=== PATIENT | female | born 1995 | race Two or more races ===

== ENCOUNTER 2024-03-05 10:02 | Emergency (ER) | payer MEDICAID, SELFPAY ==
[2024-03-05 10:03] VITALS: BMI 32.2
[2024-03-05 10:10] VITALS: BP 115/76; PULSE 92; RESP 19; TEMP 37.1; O2SAT 98
--- NOTE | 2024-03-05 10:14 | XR_ITS ---
Examination: CT soft tissue neck, with intravenous contrast. 2-D coronal reconstructions. 2-D sagittal reconstructions. Date and time of exam :March 05, 2024 1434 hrs. Indications: Beginning 4 days ago. CTDI: vol (mGy):12.6 DLP: (mGycm):326 Technique: 1.25 mm axial sections of the neck of the obtained. Coronal and sagittal reconstructions have been obtained. Intravenous contrast administered 50 cc Isovue-370. Low dose protocols were performed. One or more of the following dose reduction techniques were used; automated exposure control, adjustment of the mA and/or KV according to patient size, use of iterative reconstruction technique. Findings: Enhancing oropharyngeal areas, axial images 20 through 30, coronal image 30 both right and left tonsillar regions measuring up to 2 cm in AP dimension This supraglottic region is unremarkable No laryngeal mass Thyroid lobes exhibit symmetry Normal epiglottis Bilateral carotid triangle lymph nodes, the largest on the right side 15 mm, on the left side 15 mm Impression: Bilateral tonsillar enhancement as above, given the patient's age, differential would favor tonsillitis, early tonsillar neoplasm not excluded, however Bilateral carotid triangle lymphadenopathy Recommend follow-up CT soft tissue neck imaging post antibiotic therapy
--- NOTE | 2024-03-05 10:14 | PD.EDRME ---
Rapid Medical Screening Exam RME Arrival date/time: 03/05/24 10:02 28-year-old female presents emerged part with complaints of swelling to submandibular area ongoing x 4 days Chief Complaint: General Adult/Misc Complain Time Seen by Provider: 03/05/24 10:11 Vital signs: Vital Signs Temperature 98.8 F 03/05/24 10:10 Pulse Rate 92 03/05/24 10:10 Respiratory Rate 19 03/05/24 10:10 Blood Pressure 115/76 03/05/24 10:10 Pulse Oximetry (%) 98 03/05/24 10:10 Oxygen Delivery Method Room Air 03/05/24 10:10
[2024-03-05 10:49] LABS: Basophils % (Auto) 0 % (0-2.5); Eosinophils % (Auto) 0 % (0-10); Hematocrit 39.9 % (36.0-46.0); Hemoglobin 13.5 g/dL (12.0-16.0); Immature Granulocytes % (Auto) 0 % (0-0); Immature Granulocytes Auto 0.02 Thou/mm3 (0.00-0.00); Lymphocytes # (Auto) 1.6 Thou/mm3 (1.0-4.8); Lymphocytes % (Auto) 21 % (10-50); Mean Corpuscular HGB Conc 33.8 g/dl (31.0-37.0); Mean Corpuscular Hemoglobin 28.3 pg (25.0-35.0); Mean Corpuscular Volume 84 fL (80-100); Monocytes # (Auto) 1.2 Thou/mm3 (0.0-0.8); Monocytes % (Auto) 16 % (0-12); Neutrophils # (Auto) 4.9 Thou/mm3 (1.8-7.7); Neutrophils % (Auto) 63 % (37-80); Nucleated Red Blood Cell % 0 /100 WBC (0); Platelet Count 292 Thou/mm3 (140-440); RDW Standard Deviation 38.6 fL (36.4-46.3); Red Blood Count 4.77 Miln/mm3 (4.00-5.20); White Blood Count 7.7 Thou/mm3 (3.6-11.0)
[2024-03-05 11:15] LABS: Alanine Aminotransferase 16 U/L (10-49); Albumin, Serum 5.1 gm/dL (3.5-5.0); Albumin/Globulin Ratio 1.7 (1.2-2.2); Alkaline Phosphatase 104 U/L (46-116); Anion Gap 7 (7-16); Aspartate Amino Transferase 18 U/L (0-34); BUN/Creatinine Ratio 11 Ratio (12-20); Bilirubin,Total 0.6 mg/dL (0.3-1.2); Blood Urea Nitrogen 10 mg/dL (9-23); Calcium 9.5 mg/dL (8.3-10.6); Calcium (Corrected) 9.5 mg/dL (8.5-10.1); Carbon Dioxide 27.8 mMol/L (20.0-31.0); Chloride 103 mMol/L (98-107); Creatinine (Component) 0.9 mg/dL (0.6-1.3); Estimated Creatinine Clearance 83.3 mL/min (>60); Glucose 82 mg/dL (74-106); Osmolality,Calculated 273 (275-295); Potassium 4.2 mMol/L (3.4-5.1); Sodium 138 mMol/L (136-145); Total Protein 8.1 gm/dL (5.7-8.2); eGFR > 60 See Note
[2024-03-05 11:33] LABS: HCG,Qualitative Serum Negative
[2024-03-05] MEDS: AMOXICILLIN/POT CLAV 875 TABLET 1 TAB PO (16:06)
--- NOTE | 2024-03-05 16:25 | PD.EDDENTL ---
ED Dental RME/HPI General Chief complaint: General Adult/Misc Complain Stated complaint: LUMP LEFT CHIN x 4 DAYS Time Seen by Provider: 03/05/24 10:11 Arrival date/time: 03/05/24 10:02 RME / HPI RME / HPI Narrative: 03/05/24 10:02 28-year-old female presents emerged part with complaints of swelling to submandibular area ongoing x [address] VEGA MAIN ED EVALUATION: 28 year old female with no past medical history presents to the Emergency Department with complaint of lump to left side chin/ neck onset 4 days. Symptoms are mild. Related Data Previous Rx's ?Medication ?Instructions ?Recorded amoxicillin 875 mg tablet 875 mg PO BID #20 tabs 03/05/24 Allergies Allergy/AdvReac Type Severity Reaction Status Date / Time No Known Allergies Allergy Verified 03/05/24 10:05 Review of Systems Review of Systems Systems Reviewed: All systems reviewed, normal except as documented Narrative Review of Systems: GEN: No fever, no chills, no weight loss EYES: No discharge, no visual changes, no pain HEENT: No ear pain, no congestion, no sore throat; + lump to left side chin/ neck PULM: No shortness of breath, no cough, no congestion CV: No chest pain, no dyspnea on exertion, no palpitations GI: No nausea, no vomiting, no diarrhea, no pain, no constipation : No frequency, no urgency and no dysuria MUSC/SKEL: No joint pain, no back pain SKIN: No rash PSYCH: No hallucinations, no depression HEME/LYMPH: No easy bleeding or bruising tendencies NEURO: No weakness, no headache Past Medical History Social History SMOKING STATUS: Never smoker SUBSTANCE USE: does not use ALCOHOL: Never ED Exam Narrative Physical exam: GENERAL APPEARANCE: alert and oriented x 4, well-developed, well-nourished, no acute distress VITALS: All vitals were reviewed and the pulse ox is 98% on room air, which is normal according to my interpretation. HEENT: Normocephalic, atraumatic; pupils equal, round, reactive to light; EOMI; mucous membranes pink, moist; oropharynx clear NECK: Supple LUNGS: CTABL; no wheezes, no rales, no rhonchi HEART: Regular rate, regular rhythm; normal S1, S2; no murmurs ABDOMEN: non distended; normal BS; soft, no tenderness, no guarding, no rebound; no masses, no organomegaly, no hernia BACK: no CVA tenderness EXTREMITIES: atraumatic; no edema NEUROLOGIC: awake; alert and oriented x4; cranial nerves II-XII grossly intact; no focal sensory or motor deficits PSYCHIATRIC: appropriate mood and affect SKIN: warm, dry, normal color; no rashes Course Quality Measures none Orders Category Date Time Status Bedside COVID-19 Antigen Test NOW Care 03/05/24 15:44 Completed Bedside Influenza A&B Antigen Test NOW Care 03/05/24 15:[address] Screening NOW Care 03/05/24 10:14 Completed Insert IV NOW Care 03/05/24 13:[address] soft tissue neck w con Stat Exams 03/05/24 10:14 Completed CBC Stat Lab 03/05/24 10:33 Completed CMP [Comprehensive Metabolic Panel] Stat Lab 03/05/24 10:33 Completed HCG,Qualitative Serum Stat Lab 03/05/24 10:33 Completed Strep A Rapid Stat Lab 03/05/24 16:10 Completed Amoxicillin/Pot Clav 875 [Augmentin 875] Med 03/05/24 15:37 Discontinued 1 tab PO X1 ONE Vital Signs Vital signs: Vital Signs Temperature 98.8 F 03/05/24 10:10 Pulse Rate 92 03/05/24 10:10 Respiratory Rate 19 03/05/24 10:10 Blood Pressure 115/76 03/05/24 10:10 Pulse Oximetry (%) 98 03/05/24 10:10 Oxygen Delivery Method Room Air 03/05/24 10:10 Dental / Oral MDM Narrative MDM Narrative:: IAubree am scribing for and in the presence of Dr. Vega. Patient data External records reviewed:: [facility] previous records (Reviewed last ED visit dated 01/27/22, discharged with the following: chest pain.) Clinical information provided by:: patient Social determinants that could affect healthcare access:: none Patient has the following chronic illnesses:: Denies any PMHx, surgeries, daily medications, or known allergies. How is presenting disease/condition affected by chronic disease/condition?: no chronic disease Evaluation data The following diagnostics were reviewed and interpreted by me:: lab results and radiology exam(s) Lab and/or radiology exams considered but not ordered:: none Interpretation Summary: Procedure(s): CT soft tissue neck w con Accession Number(s): [id number] cc: Andrew (GAMALIEL),Sai ALSTON; Louis Dias MD; NO PRIMARY/FAMILY,PHYSICIAN~ Examination: CT soft tissue neck, with intravenous contrast. 2-D coronal reconstructions. 2-D sagittal reconstructions. Date and time of exam :March 05, 2024 1434 hrs. Indications: Beginning 4 days ago. CTDI: vol (mGy):12.6 DLP: (mGycm):326 Technique: 1.25 mm axial sections of the neck of the obtained. Coronal and sagittal reconstructions have been obtained. Intravenous contrast administered 50 cc Isovue-370. Low dose protocols were performed. One or more of the following dose reduction techniques were used; automated exposure control, adjustment of the mA and/or KV according to patient size, use of iterative reconstruction technique. Findings: Enhancing oropharyngeal areas, axial images 20 through 30, coronal image 30 both right and left tonsillar regions measuring up to 2 cm in AP dimension This supraglottic region is unremarkable No laryngeal mass Thyroid lobes exhibit symmetry Normal epiglottis Bilateral carotid triangle lymph nodes, the largest on the right side 15 mm, on the left side 15 mm Impression: Bilateral tonsillar enhancement as above, given the patient's age, differential would favor tonsillitis, early tonsillar neoplasm not excluded, however Bilateral carotid triangle lymphadenopathy Recommend follow-up CT soft tissue neck imaging post antibiotic therapy Dictated By: Louis Dias MD Medications / Prescriptions Medications or Prescriptions considered but not ordered:: none Medication administrations:: Medication Administration History Discontinued Medications Amoxicillin/Clavulanate Potassium (Amoxicillin/Pot Clav 875 Tablet) 1 tab PO X1 ONE Stop: 03/05/24 15:38 Last Admin: 03/05/24 16:06 Dose: 1 tab Documented By: see above Consultations Consultation(s) initiated? (list below): No Diagnosis Dental Differential Diagnosis: dental abscess and other (Acute tonsillitis, Lymphadenopathy) Most likely diagnosis given after review of the tests above:: Acute tonsillitis Lymphadenopathy Admission Indicated Admission indicated?: not indicated Admission Request Was there a request for admission?: No Disposition Plan Disposition Plan: Discharge Discharge Attestation Discharge Attestation: The patient and all family members were given an opportunity to ask questions and understood the discharge instructions. Discharge instructions specifically effects, indications for sooner follow up or return to the emergency department, and the expected course of current diagnosis. Patient condition: Stable Discharge Plan Plan Patient Disposition: HOME (Self Care) Prescriptions/Referrals Prescriptions/Med Rec: New amoxicillin 875 mg tablet 875 mg PO BID Qty: 20 0RF Referrals: No Primary/Family,Physician [Primary Care Provider] - In 1 week Problem List Clinical Impression: Acute tonsillitis, Lymphadenopathy Patient/Caregiver Discharge Instructions Education Materials: Tonsillitis in Adults, Lymphadenopathy Print Language: [place] Stand Alone Forms: Mimi Award Info., Patient Portal Info Letter
[2024-03-05 16:54] LABS: Strep A Rapid Positive (Negative)
== END 2024-03-05 16:50 | disposition home or self-care (01) ==
PROVIDERS: Nurse Practitioner Primary Care; Emergency Provider Emergency Medicine
DX: J03.90 Acute tonsillitis, unspecified (principal)
CPT/HCPCS: 36415; 70491; 80053; 84703; 85025; 87400; 87651; 87811; 99285; A4649; Q9967; A9270

== ENCOUNTER 2024-07-25 20:41 | Emergency (ER) | payer MEDICAID, SELFPAY ==
[2024-07-25 20:42] VITALS: BMI 29.0
[2024-07-25 20:53] VITALS: BP 113/77; PULSE 87; RESP 16; TEMP 36.8; O2SAT 98
--- NOTE | 2024-07-25 21:01 | XR_ITS ---
Examination: OB Transvaginal ultrasound of the pelvis, complete Technique: Transvaginal sonographic images pelvis performed using wright scale imaging Exam date and time: July 25, 2024 2115 hours INDICATIONS: Pelvic cramping beginning 2 days ago FINDINGS: Uterus 10.3 cm, no intrauterine gestation or definite uterine masses Small areas of calcification Endometrial stripe 1.4 cm Right ovary obscured by bowel gas Left ovary 3.9 cm with arterial flow, 29 x 28 cm cyst IMPRESSION: Negative for intrauterine gestation
--- NOTE | 2024-07-25 21:13 | EDNOTE_ITS ---
ED Female Urogenital RME/HPI General Chief complaint: Abdominal Pain Stated complaint: POS PREGNANCT TEST, WANTS TO BE CHECKED Time Seen by Provider: 07/25/24 21:01 Arrival date/time: 07/25/24 20:41 28F at unknown gestational age presents to ED with 2 days of pelvic pain. Patient denies dysuria and vaginal bleeding. Patient took a test at home at it was positive. Limitations: no limitations Related Data Previous Rx's ?Medication ?Instructions ?Recorded amoxicillin 875 mg tablet 875 mg PO BID #20 tabs 03/05 Allergies Allergy/AdvReac Type Severity Reaction Status Date / Time No Known Allergies Allergy Verified 03/05/24 10:05 Review of Systems Review of Systems Systems Reviewed: All systems reviewed, normal except as documented Constitutional Constitutional: Reports system reviewed and no additional complaints, except as documented, Denies fever(s) and Denies headache(s) ENT Ears, Nose, Mouth, and Throat: Denies disequilibrium and Denies headache(s) Cardiovascular Cardiovascular: Reports system reviewed and no additional complaints, except as documented, Denies chest pain and Denies dyspnea Respiratory Respiratory: Reports system reviewed and no additional complaints, except as documented, Denies cough and Denies dyspnea Gastrointestinal Gastrointestinal: Reports system reviewed and no additional complaints, except as documented, Denies abdominal pain, Denies nausea and Denies vomiting Genitourinary Genitourinary: Reports as per HPI and Reports pelvic pain Neurologic Neurologic: Reports system reviewed and no additional complaints, except as documented, Denies confusion, Denies disequilibrium and Denies headache(s) Psychiatric Psychiatric: Denies confusion Past Medical History Past Medical History NEUROLOGIC: Negative Neurological Disorders CARDIAC: Negative Cardiac Disorders or Congestive Heart Failure RESPIRATORY: Negative Chronic Obstructive Pulmonary Disease (COPD) or Asthma GASTROINTESTINAL: Negative Gastrointestinal Disorders, Hepatitis or Colorectal Cancer GENITOURINARY: Negative Genitourinary Disorders, Renal Disease or Prostate Cancer REPRODUCTIVE: Positive Previous Pregnancies; Negative Breast Cancer, Pelvic Inflammatory Disease or Testicular Cancer MUSCULOSKELETAL: Negative Musculoskeletal Disorders or Bone Cancer ENDOCRINE: Negative Endocrine Disorders, Diabetes Mellitus Type 1 or Diabetes Mellitus Type 2 HEMATOLOGIC: Negative Blood Disorders, Anemia, Leukemia or Sickle Cell Disease OTHER HISTORY: Positive Hospitalization (CHILDBIRTH); Negative Autoimmune Disease, Down Syndrome, Developmental Delay, Falls, Blood Transfusions, Blood Transfusion Reaction, Anesthesia Reactions, Organ Langford splant, Chemotherapy, Radiation Therapy, Hyperbaric Therapy, MRSA, VRSA, Vancomycin-Resistant Enterococci, Human Immunodeficiency Virus (HIV), Chicken Pox, Measles, Mumps, Rubella ([place] Measles), Pertussis, Clostridium Difficile, Cancer, Breast Cancer, Cervical Cancer, Colorectal Cancer, Lung Cancer, Ovarian Cancer, Prostate Cancer or Testicular Cancer Family History FAMILY HISTORY: Negative Family Neurologic Problems, Family Psychiatric Problems, Family Respiratory Disorders, Family Cardiac Disorders, Family Gastrointestinal Problems, Family Cancer, Family Surgery or Family Anesthesia Reaction Surgical History SURGICAL: Negative Section or Organ Transplant Social History SMOKING STATUS: Never smoker SUBSTANCE USE: does not use ED Exam General Limitations: Present no limitations General appearance: Present alert and in no apparent distress Head Head exam: Present atraumatic Eye Eye exam: Present normal appearance, PERRL and EOMI ENT ENT exam: Present normal exam, normal oropharynx and mucous membranes moist Neck Neck exam: Present normal inspection, full ROM and trachea midline Chest Chest inspection: Present normal inspection and symmetric chest wall rise Respiratory Respiratory exam: Present normal lung sounds bilaterally Cardiovascular Cardiovascular exam: Present regular rate, normal rhythm and normal heart sounds Abdominal Exam Abdominal exam: Present soft and normal bowel sounds Extremities Exam Extremities exam: Present normal inspection and full ROM Back Exam Back exam: Present normal inspection and full ROM Neurological Exam Neurological exam: Present alert, oriented X3 and CN II-XII intact Psychiatric Psychiatric exam: Present normal affect and normal mood Skin Skin exam: Present warm, dry, intact and normal color Course Quality Measures none Orders Category Date Time Status US OB transvaginal Stat Exams 07/25/24 21:01 Completed Beta HCG,Quantitative Stat Lab 07/25/24 21:46 Completed CBC Stat Lab 07/25/24 21:46 Completed CMP [Comprehensive Metabolic Panel] Stat Lab 07/25/24 21:46 Completed UA [Urinalysis] Stat Lab 07/25/24 22:30 Completed Urine Culture Stat Lab 07/25/24 22:30 Received Vital Signs Vital signs: Vital Signs Temperature 98.3 F 07/25/24 20:53 Pulse Rate 87 07/25/24 20:53 Respiratory Rate 16 07/25/24 20:53 Blood Pressure 113/77 07/25/24 20:53 Pulse Oximetry (%) 98 07/25/24 20:53 Oxygen Delivery Method Room Air 07/25/24 20:53 O2 at 98% on RA and WNLs Urogenital - Female MDM Narrative MDM Narrative:: 28F at unknown gestational age presents to ED with 2 days of pelvic pain. Patient denies dysuria and vaginal bleeding. Patient took a test at home at it was positive. Physical exam reveals well-appearing female. Patient is afebrile, calm, and alert. US unremarkable. Beta HCG 84, which confirms early . CBC and CMP unr emarkable. UA clean. Patient data External records reviewed:: [facility] previous records Clinical information provided by:: patient Social determinants that could affect healthcare access:: none Patient has the following chronic illnesses:: none How is presenting disease/condition affected by chronic disease/condition?: no chronic disease Evaluation data The following diagnostics were reviewed and interpreted by me:: lab results and radiology exam(s) Lab and/or radiology exams considered but not ordered:: ordered Interpretation Summary: above Medications / Prescriptions Medications or Prescriptions considered but not ordered:: not ordered Medication administrations:: n/a Consultations Consultation(s) initiated? (list below): No Diagnosis Urogenital Female Differential Diagnosis: urinary tract infection, bacterial vaginosis, trichomoniasis, cervicitis, ovarian cyst, vaginitis, ruptured ovarian cyst, cyst of Bartholin's gland, cystitis, dysmenorrhea and other (currently ) Most likely diagnosis given after review of the tests above:: currently Admission Indicated Admission indicated?: not indicated Admission Request Was there a request for admission?: No Disposition Plan Disposition Plan: Discharge Discharge Attestation Discharge Attestation: The patient and all family members were given an opportunity to ask questions and understood the discharge instructions. Discharge instructions specifically effects, indications for sooner follow up or return to the emergency department, and the expected course of current diagnosis. Patient condition: Stable Discharge Plan Plan Patient Disposition: HOME (Self Care) Discharge Disposition comment: Stable Prescriptions/Referrals Prescriptions/Med Rec: No Action amoxicillin 875 mg tablet 875 mg PO BID Qty: 20 0RF Referrals: No Primary/Family,Physician [Primary Care Provider] - In 1 week Problem List Clinical Impression: Currently Patient/Caregiver Discharge Instructions Education Materials: ED , New Dx Additional Instructions: Please follow-up with PCP/OBGYN within 24-48 hours and return immediately if symptoms worsen. Print Language: Mongolian Stand Alone Forms: Patient Portal Info Letter TIFFANIE/CARLA Supervising Physician TIFFANIE/CARLA Supervising Physician: Dr. Staley
[2024-07-25 21:53] LABS: Basophils # (Auto) 0.1 Thou/mm3 (0.0-0.2); Basophils % (Auto) 0 % (0-2.5); Eosinophils # (Auto) 0.2 Thou/mm3 (0.0-0.5); Eosinophils % (Auto) 2 % (0-10); Hematocrit 36.5 % (36.0-46.0); Hemoglobin 12.7 g/dL (12.0-16.0); Immature Granulocytes % (Auto) 0 % (0-0); Immature Granulocytes Auto 0.03 Thou/mm3 (0.00-0.00); Lymphocytes # (Auto) 3.9 Thou/mm3 (1.0-4.8); Lymphocytes % (Auto) 34 % (10-50); Mean Corpuscular HGB Conc 34.8 g/dl (31.0-37.0); Mean Corpuscular Hemoglobin 28.4 pg (25.0-35.0); Mean Corpuscular Volume 82 fL (80-100); Monocytes # (Auto) 1.2 Thou/mm3 (0.0-0.8); Monocytes % (Auto) 10 % (0-12); Neutrophils % (Auto) 53 % (37-80); Nucleated Red Blood Cell % 0 /100 WBC (0); Platelet Count 319 Thou/mm3 (140-440); RDW Standard Deviation 37.2 fL (36.4-46.3); Red Blood Count 4.47 Miln/mm3 (4.00-5.20); White Blood Count 11.3 Thou/mm3 (3.6-11.0)
[2024-07-25 22:17] LABS: Alanine Aminotransferase 13 U/L (10-49); Albumin, Serum 4.5 gm/dL (3.5-5.0); Albumin/Globulin Ratio 1.6 (1.2-2.2); Alkaline Phosphatase 98 U/L (46-116); Anion Gap 9 (7-16); Aspartate Amino Transferase 16 U/L (0-34); BUN/Creatinine Ratio 16 Ratio (12-20); Beta HCG,Quantitative 85 mIU/mL (<5.0); Bilirubin,Total 0.4 mg/dL (0.3-1.2); Blood Urea Nitrogen 16 mg/dL (9-23); Calcium 8.9 mg/dL (8.3-10.6); Calcium (Corrected) 8.9 mg/dL (8.5-10.1); Carbon Dioxide 26.9 mMol/L (20.0-31.0); Chloride 104 mMol/L (98-107); Estimated Creatinine Clearance 71.2 mL/min (>60); Globulin 2.9 gm/dL (2.3-3.5); Glucose 81 mg/dL (74-106); Osmolality,Calculated 279 (275-295); Potassium 4.3 mMol/L (3.4-5.1); Sodium 140 mMol/L (136-145); Total Protein 7.4 gm/dL (5.7-8.2); eGFR > 60 See Note
[2024-07-25 23:50] LABS: Collection Type, Urine Clean Catch
[2024-07-26 00:21] LABS: Bilirubin,Urine Negative (Negative); Blood,Urine Negative (Negative); Clarity,Urine Clear (Clear/Hazy); Color,Urine Yellow (Lt Yel-Yel); Glucose, Urine Negative (Negative); Ketones,Urine Negative (Negative); Leukocyte Esterase,Urine Negative (Negative); Nitrite,Urine Negative (Negative); PH,Urine 6.5 (5.0-7.0); Protein,Urine Trace (Neg - Trace); RBC,Urine 1 /hpf (0-3); Specific Gravity,Urine 1.034 (1.001-1.035); Squamous Epithelial Cell,Urine 3 /hpf (0-5); WBC,Urine 1 /hpf (0-5)
== END 2024-07-26 02:52 | disposition home or self-care (01) ==
PROVIDERS: Physician Assistant; Emergency Provider Emergency Medicine
DX: O26.899 Other specified pregnancy related conditions, unspecified trimester (principal); R10.2 Pelvic and perineal pain; Z3A.00 Weeks of gestation of pregnancy not specified
CPT/HCPCS: 36415; 76817; 80053; 81001; 84702; 85025; 87086; 99284

== ENCOUNTER 2024-08-07 09:26 | Outpatient (AMB) | payer BC, SELFPAY ==
--- NOTE | 2024-08-07 09:40 | AMB.OBINITIA ---
Vital Signs 08/07/24 09:53 Height 1.55 m Height Method Stated Weight 83.234 kg Weight Measurement Method Standing Scale BMI 34.7 BP 100/64 Blood Pressure Source Automatic Cuff Blood Pressure Location Right Upper Arm Position Sitting Respiration 17 Pulse 76 Pulse Source Monitor Temp 97.8 F Temp Source Temporal Artery Scan Pulse Oximetry (%) 98 Oxygen Delivery Method Room Air Allergies/Home Meds Allergies & Medications Allergies No Known Allergies Allergy (Verified 08/07/24 09:54) Medication Reconciliation vitamin-ferrous fumarate 28 mg iron-folic acid 800 mcg tablet ( Vitamins with Minerals) 1 tab PO QDAY #60 tabs 08/07/24 [Rx] Intake Visit Data Collection New Patient or Established: Established Patient (seen at [facility] within 3 years) Reason for Visit:: OBI Seen by Clinical Staff ONLY (RN/MA): No Labor And Delivery Registered Nurse Required: No Do You Feel Safe at Home: Yes Authorities Contacted: N/A PCP or OBGYN visit in last 3 months: Yes Date of Last PCP or OBGYN visit: 07/25/24 Hx Now: Yes Are you currently on any form of Control: No Pain Present Currently: No Pain Scale Used: Pichardo-Bryant/Numerical Pain scale:: 0 Smoking Status Smoking Status: Never smoker Questionnaires Covid-19 Vaccine Questionnaire Has patient been vacinated for Covid-19 Have you been vacinated for Covid-19: Yes PHQ-9 PHQ-2 Over the last 2 weeks, how often have you been bothered by any of the following problems? 1. Little interest or pleasure in doing things: not at all 2. Feeling down, depressed, or hopeless: not at all Total score: 0 PHQ-9 3. Trouble falling or staying asleep, or sleeping too much: Not at all 4. Feeling tired or having little energy: Not at all 5. Poor appetite or overeating: Not at all 6. Feeling bad about yourself - or that you are a failure or have let yourself or your family down: Not at all 7. Trouble concentrating on things, such as reading the newspaper or watching television: Not at all 8. Moving or speaking so slowly that other people could have noticed? - Or the opposite - being so fidgety or restless that you have been moving around a lot more than usual: not at all 9. Thoughts that you would be better off or of hurting yourself in some way: Not at all Total score: 0 If you checked off any problems, how difficult have these problems made it for you to do your work, take care of things at home, or get along with other people?: not difficult at all Source: Developed by Drs. Marcos Miramontes, Jessie Hinojosa, Grant García and colleagues, with an educational shante from [employer]. Depression screen completed yes Social History Living Situation History Marital Status: Lives With: Family Housing: House Tobacco History Smoking Status: Never smoker Alcohol History Alcohol Intake: Never Domestic Abuse History Do You Feel Safe at Home: Yes History of Present Illness HPI Narrative 28 yo for OBI. patient had GISSELL visit because early concerns. lmp 06/22/24. + preg test 07/27/24. EDC 03/30/25. denies vag bleeding. increase nausea. no cramping. 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 happy with pregnanccy. gissell sono: no evidence of IUP, uterus 10wk size, stripe: 1.4. HC. lmp 06/22/24. edc 03/30/25 schedule OB [facility] today, ob panel, discuss sab precaution and er precaution, rtc 4 week schedule OB sono at [facility], [facility] [place] today, ob panel, discuss sab precaution and er precaution, rtc 4 week . preg verif and rx for PNV Menstrual History Menstrual reliability: definite Flow: heavy Menstrual regularity: regular Monthly: Yes Age at menarche: 9 On control pills at conception: No Date of positive home test: 05/25/24 Associated symptoms (LMP): Reports nausea, vomiting, breast tenderness and urinary frequency OB History : 3 Para: 3 Hx # Pregnancies: 3 Hx Total # of Abortions (Spontaneous & Elective): 0 # of Living Children: 3 Delivery History 1st : Child's name: CORTNEY WHITESIDE date: 09/25/12 sex: female Gestational age at delivery (weeks): 35 Delivery type: vaginal weight (lbs): 2267.962 g weight (oz): 311.845 g History of depression before or after : No 2nd : Child's name: BYRON WHITESIDE date: 05/02/15 sex: male Gestational age at delivery (weeks): 34 Delivery type: vaginal weight (lbs): 2267.962 g weight (oz): 255.146 g History of depression before or after : No 3rd : Child's name: PURVI WHITESIDE date: 06/14/19 sex: male Gestational age at delivery (weeks): 32 Delivery type: vaginal weight (lbs): 2267.962 g weight (oz): 141.748 g History of depression before or after : No Infection History & Risk Evaluation History of STDs: none HIV risk evaluation: low risk Hepatitis B risk evaluation: low risk Patient or partner has history of Genital Herpes: No Varicella/chicken pox status: immunized Genetic Screening & History Genetic Screening/Teratology Counseling - Includes patient, baby's father, or anyone in either family with: 1. Patient's age 35 years or older as of estimated date of delivery: No 2. Thalassemia (Qatari, Burmese, Mediterranean, or Background); MCV less than 80: No 3. Neural Tube Defect (Meningomyelocele, Spina Bifida, or Anencephaly): No 4. Congenital Heart Defect: No 5. Down Syndrome: No 6. John-Sachs (Ashkenazi Sikhism, Cajun, Serbian Walker): No 7. Shiv Disease (Ashkenazi Sikhism): No 8. Familial Dysautonomia (Ashkenazi Sikhism): No 9. Sickle Cell Disease or Trait (): No 10. Hemophilia or other blood disorders: No 11. Muscular Dystrophy: No 12. Cystic Fibrosis: No 13. [place]'s Chorea: No 14. Mental Retardation/Autism: Yes 15. Other inherited genetic or chromosomal disorder: No 16. Maternal Metabolic Disorder (EG,TYPE 1 Diabetes, PKU): No 17. Patient or baby's father had a child with defects not listed above: No 18. Recurrent loss or a stillbirth: No 19. Medications (including supplements, vitamins, herbs or otc drugs)/illicit/recreational drugs/alcohol since last menstrual period: Yes 20. Any other: No Infection History 1. Live with someone with TB or exposed to TB: No 2. Rash or viral illness since last menstrual period: No 3. Hepatitis B,C: No Other (see comments) Source: [employer] Review of Systems Review of Systems Systems Reviewed: All systems reviewed, normal except as documented Gastrointestinal Gastrointestinal: Reports nausea and Reports vomiting Genitourinary Genitourinary: Reports urinary frequency Exam General Limitations: no limitations General Appearance: alert, in no apparent distress, comfortable, cooperative, healthy appearing, well developed and well groomed Head Head exam: atraumatic, normocephalic and normal inspection Chest Chest inspection: Present normal inspection and symmetric chest wall rise Resp Respiratory exam: Present normal lung sounds bilaterally Card Cardiovascular exam: Present regular rate, normal rhythm and normal heart sounds Abdominal Abdominal exam: Present soft and normal bowel sounds Psych Psychiatric exam: Present normal affect and normal mood Results Objective Laboratory: HC, A+, UC clear Imaging: endo vag sono: uterus 10wk size, endometrial stripe: 1.4 Office Procedures OB Clinic LOC & Office Proc's Nursing/Assessment Patient Status: Established Patient OB Clinic Nursing Assessment: Medication Reconciliation, Update PMH in EMR and Vital Signs OB Clinic Coordination of Care: Complex Care and Chronic Disease 1-5, Consent,records obtained, informed consent, Education Simp Pt/Fam, Lab and Imaging orders and Staff clarify orders Special Needs: Heart tones Established Patient Charge Established Patient Point Assignment: 130 Established Patient Point Charge: EP Level 4 (120-155) Assessment & Plan Diagnosis / Problem List (1) Encounter for supervision of normal in multigravida in first trimester: Status: Acute Plan Schedule ultrasound with [facility]. Discussed SAB precautions. Discussed danger signs symptoms. I gave her prescription for vitamins. verification done. OB panel and hCG today. Return in 3 weeks for results Additional Plan Follow Up: 4 Weeks (obc)
[2024-08-07 09:53] VITALS: BP 100/64; PULSE 76; RESP 17; TEMP 36.6; O2SAT 98; BMI 34.7
== END 2024-08-07 10:29 | disposition home or self-care (01) ==
LOC: HODSOBC 09:26
PROVIDERS: Supervising Provider Obstetrics & Gynecology; Visit Provider Advanced Practice Midwife
DX: Z34.81 Encounter for supervision of other normal pregnancy, first trimester (principal); Z3A.01 Less than 8 weeks gestation of pregnancy
CPT/HCPCS: 99214; G0463

== ENCOUNTER 2024-09-10 09:58 | Outpatient (AMB) | payer MEDICAID, SELFPAY ==
[2024-09-10 10:15] VITALS: BP 107/69; PULSE 88; RESP 17; TEMP 36.8; O2SAT 98; BMI 34.9
--- NOTE | 2024-09-10 10:15 | OBCLNT_ITS ---
Vital Signs 09/10/24 10:15 Height 1.55 m Height Method Measured Weight 83.971 kg Weight Measurement Method Standing Scale BMI 34.9 BP 107/69 Blood Pressure Source Automatic Cuff Blood Pressure Location Right Upper Arm Position Sitting Respiration 17 Pulse 88 Pulse Source Monitor Temp 98.2 F Temp Source Temporal Artery Scan Pulse Oximetry (%) 98 Oxygen Delivery Method Room Air Allergies/Home Meds Allergies & Medications Allergies No Known Allergies Allergy (Verified 09/10/24 10:16) Medication Reconciliation vitamin-ferrous fumarate 28 mg iron-folic acid 800 mcg tablet ( Vitamins with Minerals) 1 tab PO QDAY #60 tabs 08/07/24 [Rx Confirmed 09/10/24] Intake Visit Data Collection New Patient or Established: Established Patient (seen at [facility] within 3 years) Reason for Visit:: OBC Consent obtained for Telemed Visit: No Seen by Clinical Staff ONLY (RN/MA): No Food Services Manager Required: No Do You Feel Safe at Home: Yes Authorities Contacted: N/A PCP or OBGYN visit in last 3 months: Yes Date of Last PCP or OBGYN visit: 09/10/24 Hx Now: Yes Are you currently on any form of Control: No Pain Present Currently: No Pain Scale Used: Pichardo-Bryant/Numerical Pain scale:: 0 Smoking Status Smoking Status: Never smoker Questionnaires Covid-19 Vaccine Questionnaire Has patient been vacinated for Covid-19 Have you been vacinated for Covid-19: Yes PHQ-9 PHQ-2 Over the last 2 weeks, how often have you been bothered by any of the following problems? 1. Little interest or pleasure in doing things: not at all PHQ-9 8. Moving or speaking so slowly that other people could have noticed? - Or the opposite - being so fidgety or restless that you have been moving around a lot more than usual: not at all Source: Developed by Drs. Marcos Miramontes, Jessie Hinojosa, Grant García and colleagues, with an educational shante from [employer]. 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 happy with pregnanccy. gissell sono: no evidence of IUP, uterus 10wk size, stripe: 1.4. HC. lmp 06/22/24. edc 03/30/25 schedule [facility] [place] [facility] [place] [facility] [place], ob panel, discuss sab precaution and er precaution, rtc 4 week schedule OB sono at [facility], HCG today, ob panel, discuss sab precaution and er precaution, rtc 4 week . preg verif and rx for PNV 09/10/24 -?-?-?-?-?-?-?-?-?-?-?-?- 11w 3d 83.971 kg 107/69 absent unknown 10 145 absent increased nausea. work for [employer], needs note for weight restriction, denies sab complaints NIPT and carrier screen today, sched [facility] sono. call for [facility] sono results, discuss sab precaution, fluid. rtc 4 w obc GISSELL Calculator Estimated Delivery Date Method Current WG Current Estimate 03/29/25 LMP (Uncertain) 11w 3d Notes Visit Date: 09/10/24 Last Updated by: Linda Suarez CNM OB panel: O+,abs-, rpr;;nr, RUB NI, hbsag-,hiv-,hc-, gc/ct-, UA- Visit Date: 08/07/24 Last Updated by: Linda Suarez CNM 28 yo . lmp 06/22/24. EDC 03/30/25 Office Procedures OB Clinic LOC & Office Proc's Nursing/Assessment Patient Status: Established Patient OB Clinic Nursing Assessment: Medication Reconciliation, Update PMH in EMR and Vital Signs OB Clinic Coordination of Care: Complex Care and Chronic Disease 1-5, Consent,records obtained, informed consent, Education Simp Pt/Fam and Staff clarify orders Special Needs: Heart tones Established Patient Charge Established Patient Point Assignment: 115 Established Patient Point Charge: EP Level 3 (80-115) Assessment & Plan Diagnosis / Problem List (1) Encounter for supervision of normal in multigravida in first trimester: Status: Acute Plan note for weight restriction, hydrate, sched [facility] sono, NIPT/carrier screen, sab precaution, rtc 4 wk obc Additional Plan Follow Up: 4 Weeks (obc)
== END 2024-09-10 10:32 | disposition home or self-care (01) ==
LOC: HODSOBC 09:58
PROVIDERS: Supervising Provider Advanced Practice Midwife; Visit Provider Advanced Practice Midwife
DX: Z34.81 Encounter for supervision of other normal pregnancy, first trimester (principal); Z3A.11 11 weeks gestation of pregnancy
CPT/HCPCS: 99213; G0463

== ENCOUNTER 2024-09-25 21:13 | Emergency (ER) | payer MEDICAID, SELFPAY ==
[2024-09-25 21:13] VITALS: BMI 35.1
[2024-09-25 22:29] VITALS: BP 108/67; PULSE 75; RESP 16; TEMP 36.7; O2SAT 100
--- NOTE | 2024-09-25 22:39 | XR_ITS ---
Examination: Complete OB ultrasound, less than 14 weeks, transabdominal Date and time of exam: September 25, 2024 11:06 PM INDICATIONS: Pelvic cramping and bleeding beginning 2 hours ago Technique: Obstetrical ultrasound images less than 14 weeks performed via transabdominal imaging Findings: A normal shaped single intrauterine gestation is present in the uterus. CRL 7.1 cm corresponds to 13 weeks 2 days gestational age Cardiac motion 144 bpm Adjacent subchorionic hemorrhage 21 x 8 mm Ultrasonographic survey of visible structures unremarkable. Amniotic fluid volume appears appropriate for this estimated gestational age. Right ovary 3.2 cm arterial flow Appropriate 4.6 cm arterial flow to 0.6 x 3.4 cm cyst IMPRESSION: Viable intrauterine gestation 13 weeks 2 days Given the subchorionic hemorrhage, suggest short-term follow pelvic sonography.
[2024-09-25 23:04] LABS: Basophils # (Auto) 0.1 Thou/mm3 (0.0-0.2); Basophils % (Auto) 1 % (0-2.5); Eosinophils # (Auto) 0.1 Thou/mm3 (0.0-0.5); Eosinophils % (Auto) 1 % (0-10); Hematocrit 37.1 % (36.0-46.0); Hemoglobin 12.2 g/dL (12.0-16.0); Immature Granulocytes Auto 0.04 Thou/mm3 (0.00-0.00); Lymphocytes # (Auto) 2.6 Thou/mm3 (1.0-4.8); Lymphocytes % (Auto) 29 % (10-50); Mean Corpuscular HGB Conc 32.9 g/dl (31.0-37.0); Mean Corpuscular Hemoglobin 28.8 pg (25.0-35.0); Mean Corpuscular Volume 88 fL (80-100); Monocytes # (Auto) 0.9 Thou/mm3 (0.0-0.8); Monocytes % (Auto) 10 % (0-12); Neutrophils # (Auto) 5.2 Thou/mm3 (1.8-7.7); Neutrophils % (Auto) 59 % (37-80); Nucleated Red Blood Cell # 0.00 Thou/mm3 (0.00-0.00); Nucleated Red Blood Cell % 0 /100 WBC (0); Platelet Count 307 Thou/mm3 (140-440); RDW Standard Deviation 41.9 fL (36.4-46.3); Red Blood Count 4.24 Miln/mm3 (4.00-5.20); White Blood Count 8.8 Thou/mm3 (3.6-11.0)
[2024-09-25 23:26] LABS: Alanine Aminotransferase 8 U/L (10-49); Albumin, Serum 4.3 gm/dL (3.5-5.0); Albumin/Globulin Ratio 1.4 (1.2-2.2); Alkaline Phosphatase 86 U/L (46-116); Anion Gap 10 (7-16); Aspartate Amino Transferase 15 U/L (0-34); BUN/Creatinine Ratio 11 Ratio (12-20); Bilirubin,Total 0.4 mg/dL (0.3-1.2); Blood Urea Nitrogen 8 mg/dL (9-23); Calcium 9.8 mg/dL (8.3-10.6); Calcium (Corrected) 9.8 mg/dL (8.5-10.1); Carbon Dioxide 24.3 mMol/L (20.0-31.0); Chloride 104 mMol/L (98-107); Creatinine (Component) 0.7 mg/dL (0.6-1.3); Estimated Creatinine Clearance 116.9 mL/min (>60); Globulin 3.0 gm/dL (2.3-3.5); Glucose 84 mg/dL (74-106); Osmolality,Calculated 272 (275-295); Potassium 3.9 mMol/L (3.4-5.1); Sodium 138 mMol/L (136-145); Total Protein 7.3 gm/dL (5.7-8.2); eGFR > 60 See Note
[2024-09-25 23:35] LABS: Bacteria,Urine Rare; Bilirubin,Urine Negative (Negative); Blood,Urine Negative (Negative); Clarity,Urine Clear (Clear/Hazy); Collection Type, Urine Clean Catch; Color,Urine Lt-Yellow (Lt Yel-Yel); Glucose, Urine Negative (Negative); Ketones,Urine Negative (Negative); Leukocyte Esterase,Urine Negative (Negative); Nitrite,Urine Negative (Negative); PH,Urine 6.0 (5.0-7.0); Protein,Urine Negative (Neg - Trace); RBC,Urine 1 /hpf (0-3); Specific Gravity,Urine 1.019 (1.001-1.035); Squamous Epithelial Cell,Urine 6 /hpf (0-5); Urobilinogen,Urine Negative mg/dL (0.0-1.0); WBC,Urine 1 /hpf (0-5)
[2024-09-25 23:58] LABS: Beta HCG,Quantitative 41205 mIU/mL (<5.0)
--- NOTE | 2024-09-26 01:46 | PD.EDVAGBL ---
ED OB Contraction Preg RMI/HPI General Chief complaint: Vaginal Bleeding Stated complaint: VAGINAL SPOTTING 13WKS PREG Time Seen by Provider: 09/25/24 22:39 Arrival date/time: 09/25/24 21:13 28F at approximately 13 weeks and with no significant PMH presents to ED with 1 day of pelvic pain and vaginal spotting. Limitations: no limitations Related Data Previous Rx's ?Medication ?Instructions ?Recorded vitamin-ferrous fumarate 1 tab PO QDAY #60 tabs 08/07/24 28 mg iron-folic acid 800 mcg tablet ( Vitamins with Minerals) Allergies Allergy/AdvReac Type Severity Reaction Status Date / Time No Known Allergies Allergy Verified 09/10/24 10:16 Review of Systems Review of Systems Systems Reviewed: All systems reviewed, normal except as documented Constitutional Constitutional: Reports system reviewed and no additional complaints, except as documented, Denies fever(s) and Denies headache(s) ENT Ears, Nose, Mouth, and Throat: Denies disequilibrium and Denies headache(s) Cardiovascular Cardiovascular: Reports system reviewed and no additional complaints, except as documented, Denies chest pain and Denies dyspnea Respiratory Respiratory: Reports system reviewed and no additional complaints, except as documented, Denies cough and Denies dyspnea Gastrointestinal Gastrointestinal: Reports system reviewed and no additional complaints, except as documented, Denies abdominal pain, Denies nausea and Denies vomiting Genitourinary Genitourinary: Reports as per HPI, Reports abnormal vaginal bleeding and Reports pelvic pain Neurologic Neurologic: Reports system reviewed and no additional complaints, except as documented, Denies confusion, Denies disequilibrium and Denies headache(s) Psychiatric Psychiatric: Denies confusion Past Medical History Past Medical History NEUROLOGIC: Negative Neurological Disorders CARDIAC: Negative Cardiac Disorders or Congestive Heart Failure RESPIRATORY: Negative Chronic Obstructive Pulmonary Disease (COPD) or Asthma GASTROINTESTINAL: Negative Gastrointestinal Disorders, Hepatitis or Colorectal Cancer GENITOURINARY: Negative Genitourinary Disorders, Renal Disease or Prostate Cancer REPRODUCTIVE: Positive Previous Pregnancies; Negative Breast Cancer, Pelvic Inflammatory Disease or Testicular Cancer MUSCULOSKELETAL: Negative Musculoskeletal Disorders or Bone Cancer ENDOCRINE: Negative Endocrine Disorders, Diabetes Mellitus Type 1 or Diabetes Mellitus Type 2 HEMATOLOGIC: Negative Blood Disorders, Anemia, Leukemia or Sickle Cell Disease OTHER HISTORY: Positive Hospitalization (CHILDBIRTH); Negative Autoimmune Disease, Down Syndrome, Developmental Delay, Falls, Blood Transfusions, Blood Transfusion Reaction, Anesthesia Reactions, Organ Transplant, Chemotherapy, Radiation Therapy, Hyperbaric Therapy, MRSA, VRSA, Vancomycin-Resistant Enterococci, Human Immunodeficiency Virus (HIV), Chicken Pox, Measles, Mumps, Rubella (Croatian Measles), Pertussis, Clostridium Difficile, Cancer, Breast Cancer, Cervical Cancer, Colorectal Cancer, Lung Cancer, Ovarian Cancer, Prostate Cancer or Testicular Cancer Family History FAMILY HISTORY: Negative Family Neurologic Problems, Family Psychiatric Problems, Family Respiratory Disorders, Family Cardiac Disorders, Family Gastrointestinal Problems, Family Cancer, Family Surgery or Family Anesthesia Reaction Surgical History SURGICAL: Negative Section or Organ Transplant Social History SMOKING STATUS: Never smoker SUBSTANCE USE: does not use ED Exam General Limitations: Present no limitations General appearance: Present alert and in no apparent distress Head Head exam: Present atraumatic Eye Eye exam: Present normal appearance, PERRL and EOMI ENT ENT exam: Present normal exam, normal oropharynx and mucous membranes moist Neck Neck exam: Present normal inspection, full ROM and trachea midline Chest Chest inspection: Present normal inspection and symmetric chest wall rise Respiratory Respiratory exam: Present normal lung sounds bilaterally Cardiovascular Cardiovascular exam: Present regular rate, normal rhythm and normal heart sounds Abdominal Exam Abdominal exam: Present soft and normal bowel sounds Extremities Exam Extremities exam: Present normal inspection and full ROM Back Exam Back exam: Present normal inspection and full ROM Neurological Exam Neurological exam: Present alert, oriented X3 and CN II-XII intact Psychiatric Psychiatric exam: Present normal affect and normal mood Skin Skin exam: Present warm, dry, intact and normal color Course Quality Measures none Orders Category Date Time Status US OB <= 14 weeks fetus Stat Exams 09/25/24 22:39 Completed ABO/RH Type Stat Lab 09/25/24 22:49 Completed Beta HCG,Quantitative Stat Lab 09/25/24 22:49 Completed CBC Stat Lab 09/25/24 22:49 Completed CMP [Comprehensive Metabolic Panel] Stat Lab 09/25/24 22:49 Completed UA [Urinalysis] Stat Lab 09/25/24 22:55 Completed Urine Culture Stat Lab 09/25/24 22:55 Received Vital Signs Vital signs: Vital Signs Temperature 98.1 F 09/25/24 22:29 Pulse Rate 75 09/25/24 22:29 Respiratory Rate 16 09/25/24 22:29 Blood Pressure 108/67 09/25/24 22:29 Pulse Oximetry (%) 100 09/25/24 22:29 Oxygen Delivery Method Room Air 09/25/24 22:29 O2 at 100% on RA and WNLs Vaginal Bleeding MDM Narrative MDM Narrative: 28F at approximately 13 weeks and with no significant PMH presents to ED with 1 day of pelvic pain and vaginal spotting. Physical exam reveals welll-appearing female. Patient is afebrile, calm, and alert. US reveals normal IUP with normal FHR. There is a 2 cm subchorionic hemorrhage. Beta HCG WNLs. No leukocytosis or anemia. CMP unremarkable. UA clean. O+. Senior Officer given. Patient data External records reviewed:: [facility] previous records Clinical information provided by:: patient Social determinants that could affect healthcare access:: none Patient has the following chronic illnesses:: none How is presenting disease/condition affected by chronic disease/condition?: no chronic disease Evaluation data The following diagnostics were reviewed and interpreted by me:: lab results and radiology exam(s) Lab and/or radiology exams considered but not ordered:: ordered Interpretation Summary: above Medications / Prescriptions Medications or Prescriptions considered but not ordered:: not ordered Medication administrations:: n/a Consultations Consultation(s) initiated? (list below): No Diagnosis Vaginal Bleeding Differential Diagnosis: missed , threatened , dysfunctional uterine bleeding, menometrorrhagia, incomplete , ectopic without intrauterine , vaginal bleeding and other (subchorionic hemorrhage) Most likely diagnosis given after review of the tests above:: subchorionic hemorrhage Admission Indicated Admission indicated?: not indicated Admission Request Was there a request for admission?: No Disposition Plan Disposition Plan: Discharge Discharge Attestation Discharge Attestation: The patient and all family members were given an opportunity to ask questions and understood the discharge instructions. Discharge instructions specifically effects, indications for sooner follow up or return to the emergency department, and the expected course of current diagnosis. Patient condition: Stable Discharge Plan Plan Patient Disposition: HOME (Self Care) Discharge Disposition comment: Stable Prescriptions/Referrals Prescriptions/Med Rec: No Action vit-iron fum-folic ac [ Vitamin with Minerals] 28 mg iron- 800 mcg tablet 1 tab PO QDAY Qty: 60 4RF Referrals: No Primary/Family,Physician [Primary Care Provider] - In 1 week Problem List Clinical Impression: Subchorionic hemorrhage Patient/Caregiver Discharge Instructions Education Materials: Bleeding During Early Additional Instructions: Please follow-up with PCP/OBYGN within 24-48 hours and return immediately if symptoms worsen. Print Language: Kazakh Stand Alone Forms: Patient Portal Info Letter PA/SUPERVISOR ALUMINUM BOAT ASSEMBLY Supervising Physician PA/SUPERVISOR ALUMINUM BOAT ASSEMBLY Supervising Physician: Dr. Lujan
== END 2024-09-26 01:28 | disposition home or self-care (01) ==
PROVIDERS: Physician Assistant; Emergency Provider Emergency Medicine
DX: O20.8 Other hemorrhage in early pregnancy (principal); Z3A.13 13 weeks gestation of pregnancy
CPT/HCPCS: 36415; 76801; 80053; 81001; 84702; 85025; 86900; 86901; 87086; 99283

== ENCOUNTER 2024-10-08 10:30 | Outpatient (AMB) | payer MEDICAID, SELFPAY ==
[2024-10-08 10:38] VITALS: BP 105/66; PULSE 79; RESP 16; TEMP 36.6; O2SAT 98; BMI 36.1
--- NOTE | 2024-10-08 10:38 | OBCLNT_ITS ---
Vital Signs 10/08/24 10:38 Height 1.52 m Height Method Stated Weight 83.915 kg Weight Measurement Method Standing Scale BMI 36.1 BP 105/66 Blood Pressure Source Automatic Cuff Blood Pressure Location Left Upper Arm Position Sitting Respiration 16 Pulse 79 Pulse Source Monitor Temp 97.8 F Temp Source Oral Pulse Oximetry (%) 98 Oxygen Delivery Method Room Air Allergies/Home Meds Allergies & Medications Allergies No Known Allergies Allergy (Verified 10/08/24 10:39) Medication Reconciliation vitamin-ferrous fumarate 28 mg iron-folic acid 800 mcg tablet ( Vitamins with Minerals) 1 tab PO QDAY #60 tabs 08/07/24 [Rx Confirmed 10/08/24] Intake Visit Data Collection New Patient or Established: Established Patient (seen at [facility] within 3 years) Reason for Visit:: CARE Seen by Clinical Staff ONLY (RN/MA): No Associate Theatre Professor Required: No Do You Feel Safe at Home: Yes Authorities Contacted: N/A PCP or OBGYN visit in last 3 months: Yes Hx Now: Yes Are you currently on any form of Control: No Pain Present Currently: No Pain Scale Used: Pichardo-Bryant/Numerical Pain scale:: 0 Smoking Status Smoking Status: Never smoker Questionnaires Covid-19 Vaccine Questionnaire Has patient been vacinated for Covid-19 Have you been vacinated for Covid-19: Yes PHQ-9 PHQ-2 Over the last 2 weeks, how often have you been bothered by any of the following problems? 1. Little interest or pleasure in doing things: not at all 2. Feeling down, depressed, or hopeless: not at all Total score: 0 PHQ-9 3. Trouble falling or staying asleep, or sleeping too much: Not at all 4. Feeling tired or having little energy: Not at all 5. Poor appetite or overeating: Not at all 6. Feeling bad about yourself - or that you are a failure or have let yourself or your family down: Not at all 7. Trouble concentrating on things, such as reading the newspaper or watching television: Not at all 8. Moving or speaking so slowly that other people could have noticed? - Or the opposite - being so fidgety or restless that you have been moving around a lot more than usual: not at all 9. Thoughts that you would be better off or of hurting yourself in some way: Not at all Total score: 0 Source: Developed by Drs. Marcos Miramontes, Jessie Hinojosa, Grant García and colleagues, with an educational shante from [employer]. 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 happy with pregnanccy. gisslel sono: no evidence of IUP, uterus 10wk size, stripe: 1.4. HC. lmp 06/22/24. edc 03/30/25 schedule OB sono at [facility] today, ob panel, discuss sab precaution and er precaution, rtc 4 week schedule OB sono at [facility], HCG today, ob panel, discuss sab precaution and er precaution, rtc 4 week . preg verif and rx for PNV 09/10/24 -?-?-?-?-?-?-?-?-?-?-?-?- 11w 3d 83.971 kg 107/69 absent unknown 10 145 absent increased nausea. work for [employer], needs note for weight restriction, denies sab complaints NIPT and carrier screen today, sched [facility] sono. call for [facility] sono results, discuss sab precaution, fluid. rtc 4 w obc 10/08/24 -?-?-?-?-?-?-?-?-?-?-?-?- 15w 3d 83.915 kg 105/66 absent unknown 15 134 absent No OB complaints. Light movement. Patient had follow-up maternal- medicine on October 17. AFP today, discu ss sab precaution, f/u mfm 10/17 AFP today, discuss sab preca ution, f/u mfm 10/17. schedule with OB NV GISSELL Calculator Estimated Delivery Date Method Current WG Current Estimate 03/29/25 Ultrasound #2 15w 3d Other Estimates 03/29/25 LMP (Certain) 15w 3d 03/31/25 Ultrasound #1 15w 1d Notes Visit Date: 10/08/24 Last Updated by: Linda Suarez CNM NIPT-/carrier screen-. OB panel: O+,abs-, rpr;;nr, rub imm, hbsag-,hi v-,HC-, GC/CT-. UA- M sono 10/03/24: IUP 14w5, cx: 3.74 prev x3: 09/14: 35wk, 04/20: 34wk, 06/22: 32wk Visit Date: 09/10/24 Last Updated by: Linda Suarez CNM OB panel: O+,abs-, rpr;;nr, RUB NI, hbsag-,hiv-,hc-, gc/ct-, UA- Visit Date: 08/07/24 Last Updated by: Linda Suarez CNM 28 yo . lmp 06/22/24. EDC 03/30/25 Office Procedures OB Clinic LOC & Office Proc's Nursing/Assessment Patient Status: Established Patient OB Clinic Nursing Assessment: Medication Reconciliation, Update PMH in EMR and Vital Signs OB Clinic Coordination of Care: Complex Care and Chronic Disease 1-5, Consent,records obtained, informed consent, Education Simp Pt/Fam, Lab and Imag ing orders, Results/Orders obtained and Staff clarify orders Special Needs: Heart tones Established Patient Charge Established Patient Point Assignment: 135 Established Patient Point Charge: EP Level 4 (120-155) Assessment & Plan Diagnosis / Problem List (1) Encounter for care in third trimester of first : Status: Acute Plan AFP, f/u mfm 10/17/24, discuss sab precaution, s/s. rtc 4 week obc Additional Plan Follow Up: 4 Weeks (obc)
== END 2024-10-08 10:58 | disposition home or self-care (01) ==
PROVIDERS: PCP Advanced Practice Midwife; Referring Provider Advanced Practice Midwife; Supervising Provider Advanced Practice Midwife; Visit Provider Advanced Practice Midwife
DX: Z34.02 Encounter for supervision of normal first pregnancy, second trimester (principal); Z3A.15 15 weeks gestation of pregnancy
CPT/HCPCS: 99214; G0463

== ENCOUNTER 2024-11-05 10:39 | Outpatient (AMB) | payer MEDICAID, SELFPAY ==
[2024-11-05 10:53] VITALS: BP 100/65; PULSE 87; RESP 16; TEMP 36.2; O2SAT 98; BMI 36.6
--- NOTE | 2024-11-05 10:53 | AMB.OBVISIT ---
Vital Signs 11/05/24 10:53 Height 1.52 m Height Method Stated Weight 84.595 kg Weight Measurement Method Standing Scale BMI 36.6 BP 100/65 Blood Pressure Source Automatic Cuff Blood Pressure Location Left Upper Arm Position Sitting Respiration 16 Pulse 87 Pulse Source Monitor Temp 97.2 F Temp Source Oral Pulse Oximetry (%) 98 Oxygen Delivery Method Room Air Allergies/Home Meds Allergies & Medications Allergies No Known Allergies Allergy (Verified 11/05/24 10:55) Medication Reconciliation vitamin-ferrous fumarate 28 mg iron-folic acid 800 mcg tablet ( Vitamins with Minerals) 1 tab PO QDAY #60 tabs 08/07/24 [Rx Confirmed 11/05/24] Intake Visit Data Collection New Patient or Established: Established Patient (seen at [facility] within 3 years) Reason for Visit:: OBC Seen by Clinical Staff ONLY (RN/MA): No Manager Enterprise Required: No Do You Feel Safe at Home: Yes Authorities Contacted: N/A PCP or OBGYN visit in last 3 months: Yes Date of Last PCP or OBGYN visit: 10/08/24 Hx Now: Yes Are you currently on any form of Control: No Pain Present Currently: No Pain Scale Used: Pichardo-Bryant/Numerical Pain scale:: 0 Smoking Status Smoking Status: Never smoker Questionnaires Covid-19 Vaccine Questionnaire Has patient been vacinated for Covid-19 Have you been vacinated for Covid-19: Yes PHQ-9 PHQ-2 Over the last 2 weeks, how often have you been bothered by any of the following problems? 1. Little interest or pleasure in doing things: not at all 2. Feeling down, depressed, or hopeless: not at all Total score: 0 PHQ-9 3. Trouble falling or staying asleep, or sleeping too much: Not at all 4. Feeling tired or having little energy: Not at all 5. Poor appetite or overeating: Not at all 6. Feeling bad about yourself - or that you are a failure or have let yourself or your family down: Not at all 7. Trouble concentrating on things, such as reading the newspaper or watching television: Not at all 8. Moving or speaking so slowly that other people could have noticed? - Or the opposite - being so fidgety or restless that you have been moving around a lot more than usual: not at all 9. Thoughts that you would be better off or of hurting yourself in some way: Not at all Total score: 0 If you checked off any problems, how difficult have these problems made it for you to do your work, take care of things at home, or get along with other people?: not difficult at all Source: Developed by Drs. Marcos Miramontes, Jessie Hinojosa, Grant García and colleagues, with an educational shante from [employer]. 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 happy with pregnanccy. gissell sono: no evidence of IUP, uterus 10wk size, stripe: 1.4. HC. lmp 06/22/24. edc 03/30/25 schedule OB sono at [facility], HCG today, ob panel, discuss sab precaution and er precaution, rtc 4 week schedule OB sono at [facility], HCG today, ob panel, discuss sab precaution and er precaution, rtc 4 week . preg verif and rx for PNV 09/10/24 <del>?</del> 11w 3d 83.971 kg 107/69 absent unknown 10 145 absent increased nausea. work for [employer], needs note for weight restriction, denies sab complaints NIPT and carrier screen today, sched [facility] sono. call for [facility] sono results, discuss sab precaution, fluid. rtc 4 w obc 10/08/24 <del>?</del> 15w 3d 83.915 kg 105/66 absent unknown 15 134 absent No OB complaints. Light movement. Patient had follow-up maternal- medicine on October 17. AFP today, discuss sab precaution, f/u mfm 10/17 AFP today, discuss sab precaution, f/u mfm 10/17. schedule with OB NV 11/05/24 <del>?</del> 19w 3d 84.595 kg 100/65 absent unknown 19 135 absent Reports positive movement. Denies contractions. Denies leaking or bleeding. Patient has a follow-up medicine appointment November 14 to measure cervical length. Discussed AFP and carrier screens. Keep appointment on November 14 for cervical length measurement I discussed patient needing to be aware of presence of contractions and how to monitor for those along with any signs of infection. Increase fluids and rest. And return in 4 weeks OB check GISSELL Calculator Estimated Delivery Date Method Current WG Current Estimate 03/29/25 Ultrasound #2 19w 3d Other Estimates 03/29/25 LMP (Certain) 19w 3d 03/31/25 Ultrasound #1 19w 1d Notes Visit Date: 11/05/24 Last Updated by: Linda Suarez CNM AFP-. sono 11/04 CX: 4.6. IUP 19w2 Visit Date: 10/08/24 Last Updated by: Linda Suarez CNM NIPT-/carrier screen-. OB panel: O+,abs-, rpr;;nr, rub imm, hbsag-,hiv-,HC-, GC/CT-. UA- MFM sono 10/03/24: IUP 14w5, cx: 3.74 prev x3: 09/14: 35wk, 04/20: 34wk, 06/22: 32wk Visit Date: 09/10/24 Last Updated by: Linda Suarez CNM OB panel: O+,abs-, rpr;;nr, RUB NI, hbsag-,hiv-,hc-, gc/ct-, UA- Visit Date: 08/07/24 Last Updated by: Linda Suarez, MARY ELLEN 28 yo . lmp 06/22/24. EDC 03/30/25 Office Procedures OB Clinic LOC & Office Proc's Nursing/Assessment Patient Status: Established Patient OB Clinic Nursing Assessment: Medication Reconciliation, Update PMH in EMR and Vital Signs OB Clinic Coordination of Care: Education Complex Pt/Fam, Consent,records obtained, informed consent, Lab and Imaging orders and Staff clarify orders Special Needs: Heart tones Established Patient Charge Established Patient Point Assignment: 110 Established Patient Point Charge: EP Level 3 (80-115) Assessment & Plan Diagnosis / Problem List (1) Encounter for supervision of high risk in second trimester, antepartum: Status: Acute Plan Discussed labor precautions. I discussed how to monitor for contractions. Be vigilant about infections. Increase fluids. No sex. Increase rest. Return in 4 weeks OB check Additional Plan Follow Up: 4 Weeks (obc)
== END 2024-11-05 11:14 | disposition home or self-care (01) ==
LOC: HODSOBC 10:39
PROVIDERS: PCP Advanced Practice Midwife; Referring Provider Advanced Practice Midwife; Supervising Provider Advanced Practice Midwife; Visit Provider Advanced Practice Midwife
DX: O09.92 Supervision of high risk pregnancy, unspecified, second trimester (principal); Z3A.19 19 weeks gestation of pregnancy
CPT/HCPCS: 99213; G0463

== ENCOUNTER 2024-11-20 19:10 | Observation (INO) | payer MEDICAID, SELFPAY ==
[2024-11-20] VITALS (39 sets, daily range): BP systolic 95–107; BP diastolic 53–67; PULSE 69–91; RESP 18–99; TEMP 37.3; O2SAT 98–100; BMI 32.1
--- NOTE | 2024-11-20 20:05 | XR_ITS ---
Examination: Complete OB ultrasound greater than 14 weeks Date and time of exam: November 20, 2024 2048 hrs. Indications: Patient fell today with into the pelvis, pelvic pain Findings: Viable intrauterine single fetus with single amniotic sac presentation cephalic Cardiac motion 141 BPM Placenta fundal grade 2 no abruption Umbilical cord insertion 3 vessel seen. Amniotic fluid volume adequate spine maternal left Cervix 5.3 cm Right ovary obscured by bowel gas Left ovary 3.7 cm arterial flow 26 mm cyst. Composite estimated gestational age based on BPD, head circumference, abdominal circumference, femur length is 21 weeks 6 days Estimated weight 453 g. Survey of intracranial anatomy, spinal anatomy, abdominal anatomy, four-chamber heart performed with no abnormalities identified. Impression: Viable intrauterine gestation cephalic presentation.
[2024-11-20] MEDS: ACETAMINOPHEN 500 MG TABLET PO (20:19)
--- NOTE | 2024-11-20 20:59 | ESPR_ITS ---
Documentation for date of: 11/20/24 OB Labor Progress Note Pelvic Exam Amniotic membrane status: Intact Assessment and Plan Comments: Triage Note Musa is a 29yo with SIUP at 21+wk presenting to L&D after a fall this evening onto her right hip when mopping. She notes no painful/regular ctx, no vaginal bleeding, no loss of fluid. Feels movement. PMhx/PNC significant for: -Hx of 3 pre-term deliveries -Has good PNC with MARY ELLEN Suarez -She notes recent cervical length showed long cervix ROS negative other than what was described above. Vitals wnl, afebrile General: well developed, well nourished, no acute distress, conversant Cardiac: normal heart rate Lungs: breathing without distress Abdomen: soft, gravid, non-tender, no rebound or guarding Extremities: no edema of BLE No vaginal bleeding +doptones [place]: no ctx pattern Radiology: Examination: Complete OB ultrasound greater than 14 weeks Date and time of exam: November 20, 2024 2048 hrs. Indications: Patient fell today with into the pelvis, pelvic pain Findings: Viable intrauterine single fetus with single amniotic sac presentation cephalic Cardiac motion 141 BPM Placenta fundal grade 2 no abruption Umbilical cord insertion 3 vessel seen. Amniotic fluid volume adequate spine maternal left Cervix 5.3 cm Right ovary obscured by bowel gas Left ovary 3.7 cm arterial flow 26 mm cyst. Composite estimated gestational age based on BPD, head circumference, abdominal circumference, femur length is 21 weeks 6 days Estimated weight 453 g. Survey of intracranial anatomy, spinal anatomy, abdominal anatomy, four-chamber heart performed with no abnormalities identified. Impression: Viable intrauterine gestation cephalic presentation. Labs: O positive blood type Assessment: Musa is a 29yo with SIUP at 21+wk with no evidence of placental abruption s/p fall. Normal ultrasound. Reassuring status. Vitals wnl, benign exam. Plan: -Reassurance provided -Tylenol prn musculoskeletal discomforts -Follow up with MARY ELLEN Suarez at routine visit -Return precautions discussed for vaginal bleeding, loss of fluid, contractions, worsening discomfort, decreased movement. Lina Wilburn MD
== END 2024-11-20 22:18 | disposition home or self-care (01) ==
PROVIDERS: Admitting Provider Obstetrics & Gynecology; Visit Provider Obstetrics & Gynecology
DX: O9A.212 Injury, poisoning and certain other consequences of external causes complicating pregnancy, second trimester (principal); S79.911A Unspecified injury of right hip, initial encounter; Z3A.21 21 weeks gestation of pregnancy; W19.XXXA Unspecified fall, initial encounter; Y93.E5 Activity, floor mopping and cleaning
CPT/HCPCS: 59899; 76805; 86850; 86900; 86901; A9270

== ENCOUNTER 2024-12-03 11:10 | Outpatient (AMB) | payer MEDICAID, SELFPAY ==
[2024-12-03 11:19] VITALS: BP 107/71; PULSE 95; RESP 16; TEMP 36.2; O2SAT 98; BMI 35.2
--- NOTE | 2024-12-03 11:19 | OBCLNT_ITS ---
Vital Signs 12/03/24 11:19 Height 1.55 m Height Method Stated Weight 84.538 kg Weight Measurement Method Standing Scale BMI 35.2 BP 107/71 Blood Pressure Source Automatic Cuff Blood Pressure Location Left Upper Arm Position Sitting Respiration 16 Pulse 95 Pulse Source Monitor Temp 97.2 F Temp Source Oral Pulse Oximetry (%) 98 Oxygen Delivery Method Room Air Allergies/Home Meds Allergies & Medications Allergies No Known Allergies Allergy (Verified 12/03/24 11:20) Medication Reconciliation vitamin-ferrous fumarate 28 mg iron-folic acid 800 mcg tablet ( Vitamins with Minerals) 1 tab PO QDAY #60 tabs 08/07/24 [Rx Confirmed 12/03/24] Intake Visit Data Collection New Patient or Established: Established Patient (seen at [facility] within 3 years) Reason for Visit:: OB Seen by Clinical Staff ONLY (RN/MA): No Public Defender Required: No Do You Feel Safe at Home: Yes Authorities Contacted: N/A PCP or OBGYN visit in last 3 months: Yes Date of Last PCP or OBGYN visit: 11/20/24 Hx Now: Yes Are you currently on any form of Control: No Pain Present Currently: No Pain Scale Used: Pichardo-Bryant/Numerical Pain scale:: 0 Smoking Status Smoking Status: Never smoker Questionnaires Covid-19 Vaccine Questionnaire Has patient been vacinated for Covid-19 Have you been vacinated for Covid-19: Yes PHQ-9 PHQ-2 Over the last 2 weeks, how often have you been bothered by any of the following problems? 1. Little interest or pleasure in doing things: not at all 2. Feeling down, depressed, or hopeless: not at all Total score: 0 PHQ-9 3. Trouble falling or staying asleep, or sleeping too much: Not at all 4. Feeling tired or having little energy: Not at all 5. Poor appetite or overeating: Not at all 6. Feeling bad about yourself - or that you are a failure or have let yourself or your family down: Not at all 7. Trouble concentrating on things, such as reading the newspaper or watching television: Not at all 8. Moving or speaking so slowly that other people could have noticed? - Or the opposite - being so fidgety or restless that you have been moving around a lot more than usual: not at all 9. Thoughts that you would be better off or of hurting yourself in some way: Not at all Total score: 0 If you checked off any problems, how difficult have these problems made it for you to do your work, take care of things at home, or get along with other people?: not difficult at all Source: Developed by Drs. Marcos Miramontes, Jessie Hinojosa, Grant García and colleagues, with an educational shante from [employer] 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 happy with pregnanccy. gissell sono: no evidence of IUP, uterus 10wk size, stripe: 1.4. HC. lmp 06/22/24. edc 03/30/25 schedule OB sono at [facility] today, ob panel, discuss sab precaution and er precaution, rtc 4 week schedule OB sono at [facility] today, ob panel, discuss sab precaution and er precaution, rtc 4 week . preg verif and rx for PNV 09/10/24 -?-?-?-?-?-?-?-?-?-?-?-?- 11w 3d 83.971 kg 107/69 absent unknown 10 145 absent increased nausea. work for [employer] note for weight restriction, denies sab complaints NIPT and carrier screen today, sched [facility] sono. call for [facility] sono results, discuss sab precaution, fluid. rtc 4 w obc 10/08/24 -?-?-?-?-?-?-?-?-?-?-?-?- 15w 3d 83.915 kg 105/66 absent unknown 15 134 absent No OB complaints. Light movement. Patient had follow-up maternal- medicine on October 17. AFP today, discu ss sab precaution, f/u mf 10/17 AFP today, discuss sab preca ution, f/u mf 10/17. schedule with OB NV 11/05/24 -?-?-?-?-?-?-?-?-?-?-?-?- 19w 3d 84.595 kg 100/65 absent unknown 19 135 absent Reports positive movement. Denies contractions. Denies leaking or bleeding. Patient has a follow-up medicine appointment November 14 to measure cervical length. Discussed AFP and carrier screens. Keep appointment on November 14 for cervical length measurement I discussed patient needing to be aware of presence of contractions and how to monitor for those along with any signs of infection. Increase fluids and rest. And return in 4 weeks OB check 12/03/24 -?-?-?-?-?-?-?-?-?-?-?-?- 23w 3d 84.538 kg 107/71 absent unknown 23 135 active Reports good movement. Denies leaking or bleeding. Denies contractions. Patient started on low-dose baby aspirin by MFM last visit. Continue to be observant for labor signs and symptoms. Denies advised on monitoring for early contractions. Increase fluids. Be vigilant about signs symptoms of vaginitis and UTI. labor precautions given. Third trimester labs. I discussed patient management with OB. Patient to be given betamethasone x 2 at 30 weeks. Third trimester labs ordered. Patient has a follow-up in 4 weeks with MFM. GISSELL Calculator Estimated Delivery Date Method Current WG Current Estimate 03/29/25 LMP (Certain) 23w 3d Other Estimates 03/31/25 Ultrasound #1 23w 1d 03/29/25 Ultrasound #2 23w 3d 03/29/25 Manual 23w 3d final gissell: 03/29 Notes Visit Date: 12/03/24 Last Updated by: Linda Suarez CNM sono: 11/14: 20w5. CX: 3.89: Give Beta x2 at 30 wk. f/u sono in 4 wk, If CX shortens at 24 week: start vag progesterone Visit Date: 11/05/24 Last Updated by: Linda Suarez CNM AFP-. sono 11/04 CX: 4.6. IUP 19w2 Visit Date: 10/08/24 Last Updated by: Linda Suarez CNM NIPT-/carrier screen-. OB panel: O+,abs-, rpr;;nr, rub imm, hbsag-,hiv-,HC-, GC/CT-. UA- MFM sono 10/03/24: IUP 14w5, cx: 3.74 prev x3: 09/14: 35wk, 04/20: 34wk, 06/22: 32wk Visit Date: 09/10/24 Last Updated by: Linda Suarez CNM OB panel: O+,abs-, rpr;;nr, RUB NI, hbsag-,hiv-,hc-, gc/ct-, UA- Visit Date: 08/07/24 Last Updated by: Linda Suarez CNM 28 yo . lmp 06/22/24. EDC 03/30/25 Office Procedures OBC Clinic LOC & Office Proc's Nursing/Assessment Patient Status: Established Patient OB Clinic Nursing Assessment: Medication Reconciliation, Update PMH in EMR and Vital Signs OB Clinic Coordination of Care: Education Complex Pt/Fam, Consent,records obtained, informed consent, Lab and Imaging orders, Results/Orders obtained and Staff clarify orders Special Needs: Heart tones Established Patient Charge Established Patient Point Assignment: 115 Established Patient Point Charge: EP Level 3 (80-115) Assessment & Plan Diagnosis / Problem List (1) Encounter for supervision of high risk in second trimester, antepartum: Status: Acute Plan Discussed labor precautions. Increase fluids. Third trimester labs ordered. Patient to continue low-dose baby aspirin. Continue prenatals. Follow-up MFM in 4 weeks was scheduled. I discussed with patient the need to be vigilant about any signs or symptoms of vaginitis and UTI. We also talked about monitoring contractions at home. ER precautions given. Per OB consult, start betamethasone x 2 at 30 weeks. Return in 2 weeks OB check Additional Plan Follow Up: 2 Weeks (obc)
== END 2024-12-03 11:33 | disposition home or self-care (01) ==
LOC: HODSOBC 11:10
PROVIDERS: Supervising Provider Advanced Practice Midwife; Visit Provider Advanced Practice Midwife
DX: O09.92 Supervision of high risk pregnancy, unspecified, second trimester (principal); Z3A.23 23 weeks gestation of pregnancy
CPT/HCPCS: 99213; G0463

== ENCOUNTER 2024-12-30 21:11 | Observation (INO) | payer MEDICAID, SELFPAY ==
[2024-12-30] VITALS (11 sets, daily range): BP systolic 103–107; BP diastolic 58–66; PULSE 70–82; RESP 16–99; TEMP 36.8; O2SAT 96–99; BMI 37.0
== END 2024-12-30 22:12 | disposition home or self-care (01) ==
PROVIDERS: Admitting Provider Obstetrics & Gynecology; Visit Provider Obstetrics & Gynecology
DX: Z34.82 Encounter for supervision of other normal pregnancy, second trimester (principal); Z3A.27 27 weeks gestation of pregnancy
CPT/HCPCS: 59899

== ENCOUNTER 2024-12-31 10:14 | Outpatient (AMB) | payer MEDICAID, SELFPAY ==
--- NOTE | 2024-12-31 10:16 | AMB.OBVISIT ---
Vital Signs 12/31/24 10:20 Height 1.52 m Height Method Stated Weight 85.786 kg Weight Measurement Method Standing Scale BMI 36.9 BP 104/66 Blood Pressure Source Automatic Cuff Blood Pressure Location Left Upper Arm Position Sitting Respiration 16 Pulse 87 Pulse Source Monitor Temp 97.3 F Temp Source Oral Pulse Oximetry (%) 98 Oxygen Delivery Method Room Air Allergies/Home Meds Allergies & Medications Allergies No Known Allergies Allergy (Verified 12/31/24 10:35) Medication Reconciliation vitamin-ferrous fumarate 28 mg iron-folic acid 800 mcg tablet ( Vitamins with Minerals) 1 tab PO QDAY #60 tabs 08/07/24 [Rx Confirmed 12/31/24] Intake Visit Data Collection New Patient or Established: Established Patient (seen at [facility] within 3 years) Reason for Visit:: CARE Seen by Clinical Staff ONLY (RN/MA): No Construction Specialist Required: No Do You Feel Safe at Home: Yes Authorities Contacted: N/A PCP or OBGYN visit in last 3 months: Yes Hx Now: Yes Are you currently on any form of Control: No Pain Present Currently: Yes Pain Location: Back (LOWER BACK) Pain Scale Used: Pichardo-Bryant/Numerical Pain scale:: 5 Smoking Status Smoking Status: Never smoker Immunizations Flu Vaccine in the Last 12 Months: Yes Flu Vaccine Exclusion Criteria: Already Received Questionnaires Covid-19 Vaccine Questionnaire Has patient been vacinated for Covid-19 Have you been vacinated for Covid-19: Yes PHQ-9 PHQ-2 Over the last 2 weeks, how often have you been bothered by any of the following problems? 1. Little interest or pleasure in doing things: not at all 2. Feeling down, depressed, or hopeless: not at all Total score: 0 PHQ-9 3. Trouble falling or staying asleep, or sleeping too much: Not at all 4. Feeling tired or having little energy: Not at all 5. Poor appetite or overeating: Not at all 6. Feeling bad about yourself - or that you are a failure or have let yourself or your family down: Not at all 7. Trouble concentrating on things, such as reading the newspaper or watching television: Not at all 8. Moving or speaking so slowly that other people could have noticed? - Or the opposite - being so fidgety or restless that you have been moving around a lot more than usual: not at all 9. Thoughts that you would be better off or of hurting yourself in some way: Not at all Total score: 0 Source: Developed by Drs. Marcos Miramontes, Jessie Hinojosa, Grant García and colleagues, with an educational shante from [employer]. 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 happy with pregnanccy. gissell sono: no evidence of IUP, uterus 10wk size, stripe: 1.4. HC. lmp 06/22/24. edc 03/30/25 schedule OB sono at [facility], HCG today, ob panel, discuss sab precaution and er precaution, rtc 4 week schedule OB sono at [facility], HCG today, ob panel, discuss sab precaution and er precaution, rtc 4 week . preg verif and rx for PNV 09/10/24 <del>?</del> 11w 3d 83.971 kg 107/69 absent unknown 10 145 absent increased nausea. work for [employer], needs note for weight restriction, denies sab complaints NIPT and carrier screen today, sched [facility] sono. call for [facility] sono results, discuss sab precaution, fluid. rtc 4 w obc 10/08/24 <del>?</del> 15w 3d 83.915 kg 105/66 absent unknown 15 134 absent No OB complaints. Light movement. Patient had follow-up maternal- medicine on October 17. AFP today, discuss sab precaution, f/u [facility] 10/17 AFP today, discuss sab precaution, f/u [facility] 10/17. schedule with OB NV 11/05/24 <del>?</del> 19w 3d 84.595 kg 100/65 absent unknown 19 135 absent Reports positive movement. Denies contractions. Denies leaking or bleeding. Patient has a follow-up medicine appointment November 14 to measure cervical length. Discussed AFP and carrier screens. Keep appointment on November 14 for cervical length measurement I discussed patient needing to be aware of presence of contractions and how to monitor for those along with any signs of infection. Increase fluids and rest. And return in 4 weeks OB check 12/03/24 <del>?</del> 23w 3d 84.538 kg 107/71 absent unknown 23 135 active Reports good movement. Denies leaking or bleeding. Denies contractions. Patient started on low-dose baby aspirin by [facility] last visit. Continue to be observant for labor signs and symptoms. Denies advised on monitoring for early contractions. Increase fluids. Be vigilant about signs symptoms of vaginitis and UTI. labor precautions given. Third trimester labs. I discussed patient management with OB. Patient to be given betamethasone x 2 at 30 weeks. Third trimester labs ordered. Patient has a follow-up in 4 weeks with [facility]. 12/31/24 <del>?</del> 27w 3d 85.786 kg 104/66 absent unknown 27 135 active Patient was seen in labor and delivery December 30, 2024. She is 1/2 cm dilated. She went in because cramping and pelvic pressure. Reports movement. 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 No leaking or bleeding. Patient has a follow-up [facility] January 27 start iron bid, ptl precaution start iron bid, ptl precaution. Patient will start disability today on December 31, 2024. Because of cramping and pressure in the second trimester. Discussed labor precautions parameters. Increase fluids. Keep maternal- medicine appointment January 27 and return in 3 weeks for OB check GISSELL Calculator Estimated Delivery Date Method Current WG Current Estimate 03/29/25 LMP (Certain) 27w 3d Other Estimates 03/31/25 Ultrasound #1 27w 1d 03/29/25 Ultrasound #2 27w 3d 03/29/25 Manual 27w 3d final gissell: 03/29/25 Notes Visit Date: 12/31/24 Last Updated by: Linda Suarez CNM 12/15: 3rd trilab wnl, Visit Date: 12/03/24 Last Updated by: Linda Suarez CNM sono: 11/14: 20w5. CX: 3.89: Give Beta x2 at 30 wk. f/u sono in 4 wk, If CX shortens at 24 week: start vag progesterone Visit Date: 11/05/24 Last Updated by: Linda Suarez CNM AFP-. sono 11/04 CX: 4.6. IUP 19w2 Visit Date: 10/08/24 Last Updated by: Linda Suarez CNM NIPT-/carrier screen-. OB panel: O+,abs-, rpr;;nr, rub imm, hbsag-,hiv-,HC-, GC/CT-. UA- MFM sono 10/03/24: IUP 14w5, cx: 3.74 prev x3: 09/14: 35wk, 04/20: 34wk, 06/22: 32wk Visit Date: 09/10/24 Last Updated by: Linda Suarez CNM OB panel: O+,abs-, rpr;;nr, RUB NI, hbsag-,hiv-,hc-, gc/ct-, UA- Visit Date: 08/07/24 Last Updated by: Linda Suarez CNM 28 yo . lmp 06/22/24. EDC 03/30/25 Office Procedures OBC Clinic LOC & Office Proc's Nursing/Assessment Patient Status: Established Patient OB Clinic Nursing Assessment: Medication Reconciliation, Update PMH in EMR and Vital Signs OB Clinic Coordination of Care: Complex Care and Chronic Disease 1-5, Consent,records obtained, informed consent, Education Simp Pt/Fam, 1 Ins Authorization, Lab and Imaging orders, Results/Orders obtained and Staff clarify orders Special Needs: Heart tones Established Patient Charge Established Patient Point Assignment: 150 Established Patient Point Charge: EP Level 4 (120-155) Assessment & Plan Diagnosis / Problem List (1) Encounter for supervision of high risk in second trimester, antepartum: Status: Acute Plan Start disability today on December 31, 2024. Increase rest. Increase fluids. Pelvic rest and no sex. Reviewed ER precautions. Patient will keep follow-up MFM appointment January 27. Additional Plan Follow Up: 3 Weeks (obc)
[2024-12-31 10:20] VITALS: BP 104/66; PULSE 87; RESP 16; TEMP 36.3; O2SAT 98; BMI 36.9
== END 2024-12-31 11:08 | disposition home or self-care (01) ==
LOC: HODSOBC 10:14
PROVIDERS: Supervising Provider Advanced Practice Midwife; Visit Provider Advanced Practice Midwife
DX: O09.892 Supervision of other high risk pregnancies, second trimester (principal); O47.02 False labor before 37 completed weeks of gestation, second trimester; Z3A.27 27 weeks gestation of pregnancy
CPT/HCPCS: 99214; G0463

== ENCOUNTER 2025-01-01 19:54 | Observation (INO) | payer MEDICAID, SELFPAY ==
[2025-01-01] VITALS (25 sets, daily range): BP systolic 100–109; BP diastolic 56–64; PULSE 71–88; RESP 16–98; TEMP 36.9; O2SAT 97–100; BMI 37.0
[2025-01-01 20:46] LABS: ROM Kit Lot # 58106258
[2025-01-01 20:47] LABS: ROM Kit Exp Date# 4/11/28; ROM Swab Mixed By: GARRK1; Rupture of Fetal Membranes Negative (Negative); Swb Mxed in Solvent 1 min? Yes
--- NOTE | 2025-01-01 20:50 | XR_ITS ---
Examination: OB Transvaginal ultrasound of the pelvis, limited Technique: Transvaginal sonographic images pelvis performed using wright scale imaging Exam date and time: January 01, 2025, 2057 hours INDICATIONS: Leaking amniotic fluid today, unknown cervical length FINDINGS: Cervix 4.1 cm closed IMPRESSION: Cervix 4.1 cm close.
== END 2025-01-01 22:10 | disposition home or self-care (01) ==
PROVIDERS: Admitting Provider Obstetrics & Gynecology; Visit Provider Obstetrics & Gynecology
DX: Z34.82 Encounter for supervision of other normal pregnancy, second trimester (principal); Z3A.27 27 weeks gestation of pregnancy
CPT/HCPCS: 59025; 59899; 76817; 84112

== ENCOUNTER 2025-01-20 11:24 | Outpatient (AMB) | payer MEDICAID, SELFPAY ==
--- NOTE | 2025-01-20 11:27 | OBCLNT_ITS ---
Vital Signs 01/20/25 11:41 Height 1.52 m Height Method Stated Weight 85.729 kg Weight Measurement Method Standing Scale BMI 36.9 BP 102/69 Blood Pressure Source Automatic Cuff Blood Pressure Location Left Upper Arm Position Sitting Respiration 18 Pulse 90 Pulse Source Monitor Temp 97.6 F Temp Source Oral Pulse Oximetry (%) 98 Oxygen Delivery Method Room Air Allergies/Home Meds Allergies & Medications Allergies No Known Allergies Allergy (Verified 01/20/25 11:42) Medication Reconciliation vitamin-ferrous fumarate 28 mg iron-folic acid 800 mcg tablet ( Vitamins with Minerals) 1 tab PO QDAY #60 tabs 08/07/24 [Rx Confirmed 01/20/25] aspirin 81 mg tablet,delayed release 81 mg PO DAILY 01/01/25 [History Confirmed 01/20/25] ursodiol 200 mg capsule 200 mg PO BID #30 caps 01/20/25 [Rx] Immunizations Immunizations Flu Vaccine in the Last 12 Months: Yes Date of most recent flu vaccination: 01/20/25 Flu Vaccine Exclusion Criteria: Already Received Care OB Visit Log OB Flowsheet Initial Weight: Not Recorded Date -?-?-?-?-?-?-?-?-?-?-?-?- EGA Weight BP Alb Glu CTX Pres Fundal ht FHR Mov Dilation Station Effacement Hx Notes Visit Note 08/07/24 -?-?-?-?-?-?-?-?-?-?-?-?- 6w 4d 83.234 kg 100/64 absent unknown c/o nausea, denies sab complaints. happy with pregnanccy. hilda sono: no evidence of IUP, uterus 10wk size, stripe: 1.4. HC. lmp 06/22/24. edc 03/30/25 schedule OB sono at [facility] today, ob panel, discuss sab precaution and er precaution, rtc 4 week schedule OB sono at [facility], [facility] today, ob panel, discuss sab precaution and er precaution, rtc 4 week . preg verif and rx for PNV 09/10/24 -?-?-?-?-?-?-?-?-?-?-?-?- 11w 3d 83.971 kg 107/69 absent unknown 10 145 absent increased nausea. work for [employer], needs note for weight restriction, denies sab complaints NIPT and carrier screen today, sched [facility] sono. call for [facility] sono results, discuss sab precaution, fluid. rtc 4 w obc 10/08/24 -?-?-?-?-?-?-?-?-?-?-?-?- 15w 3d 83.915 kg 105/66 absent unknown 15 134 absent No OB complaints. Light movement. Patient had follow-up maternal- medicine on October 17. AFP today, discu ss sab precaution, f/u [facility] 10/17 AFP today, discuss sab preca ution, f/u [facility] 10/17. schedule with OB [place] 11/05/24 -?-?-?-?-?-?-?-?-?-?-?-?- 19w 3d 84.595 kg 100/65 absent unknown 19 135 absent Reports positive movement. Denies contractions. Denies leaking or bleeding. Patient has a follow-up medicine appointment November 14 to measure cervical length. Discussed AFP and carrier screens. Keep appointment on November 14 for cervical length measurement I discussed patient needing to be aware of presence of contractions and how to monitor for those along with any signs of infection. Increase fluids and rest. And return in 4 weeks OB check 12/03/24 -?-?-?-?-?-?-?-?-?-?-?-?- 23w 3d 84.538 kg 107/71 absent unknown 23 135 active Reports good movement. Denies leaking or bleeding. Denies contractions. Patient started on low-dose baby aspirin by [facility] last visit. Continue to be observant for labor signs and symptoms. Denies advised on monitoring for early contractions. Increase fluids. Be vigilant about signs symptoms of vaginitis and UTI. labor precautions given. Third trimester labs. I discussed patient management with OB. Patient to be given betamethasone x 2 at 30 weeks. Third trimester labs ordered. Patient has a follow-up in 4 weeks with [facility]. 12/31/24 -?-?-?-?-?-?-?-?-?-?-?-?- 27w 3d 85.786 kg 104/66 absent unknown 27 135 active Patient was seen in labor and delivery December 30, 2024. She is 1/2 cm dilated. She went in because cramping and pelvic pressure. Reports movement. 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 No leaking or bleeding. Patient has a follow-up [facility] January 27 start iron bid, ptl precaution start iron bid, ptl precauti on. Patient will start disability today on December 31, 2024. Because of cramping and pressure in the second trimester. Discussed labor precautions parameters. Increase fluids. Keep maternal- medicine appointment January 27 and return in 3 weeks for OB check 01/20/25 -?-?-?-?-?-?-?-?-?-?-?-?- 30w 2d 85.729 kg 102/69 absent unknown 30 135 active Patient complains of general itching over her body. Previous history of cholestasis. She has a follow-up appoint with [facility] January 27. Denies leaking, bleeding or contractions. Reports good movement Flu and Tdap given today. Keep appointment with maternal- medicine and January 27 for follow-up ultrasound. Discussed labor precautions. I ordered cholestasis labs today. Ursodiol 200 p.o. twice daily. Comfort measures. Return in 2 weeks OB HILDA Calculator Estimated Delivery Date Method Current WG Current Estimate 03/29/25 LMP (Certain) 30w 2d Other Estimates 03/31/25 Ultrasound #1 30w 0d 03/29/25 Ultrasound #2 30w 2d 03/29/25 Manual 30w 2d final hilda: 03/29 Notes Visit Date: 12/31/24 Last Updated by: Linda Suarez CNM 12/15: 3rd trilab wnl, Visit Date: 12/03/24 Last Updated by: Linda Suarez CNM sono: 11/14: 20w5. CX: 3.89: Give Beta x2 at 30 wk. f/u sono in 4 wk, If CX shortens at 24 week: start vag progesterone Visit Date: 11/05/24 Last Updated by: Linda Suarez CNM AFP-. sono 11/04 CX: 4.6. IUP 19w2 Visit Date: 10/08/24 Last Updated by: Linda Suarez CNM NIPT-/carrier screen-. OB panel: O+,abs-, rpr;;nr, rub imm, hbsag-,hiv-,HC-, GC/CT-. UA- MFM sono 10/03/24: IUP 14w5, cx: 3.74 prev x3: 09/14: 35wk, 04/20: 34wk, 06/22: 32wk Visit Date: 09/10/24 Last Updated by: Linda Suarez CNM OB panel: O+,abs-, rpr;;nr, RUB NI, hbsag-,hiv-,hc-, gc/ct-, UA- Visit Date: 08/07/24 Last Updated by: Linda Suarez CNM 28 yo . lmp 06/22/24. EDC 03/30/25 Office Procedures OBC Clinic LOC & Office Proc's Nursing/Assessment Patient Status: Established Patient OB Clinic Nursing Assessment: Medication Reconciliation, Update PMH in EMR and Vital Signs OB Clinic Coordination of Care: Complex Care and Chronic Disease 1-5, Consent,records obtained, informed consent, Education Simp Pt/Fam, 1 Ins Authorization, Lab and Imaging orders, Results/Orders obtained and Staff clarify orders Special Needs: Heart tones Established Patient Charge Established Patient Point Assignment: 150 Established Patient Point Charge: EP Level 4 (120-155) Injection/Vaccine Admin SQ Im Injection: Yes Immunizations flu vac ts (6mos up)-PF 45 mcg(15mcg x3)/0.5 mL IM syringe Performing Provider: Linda Suarez CNM Performing Location: [facility] Administered by: Kamala Salazar MA on 01/20/25 12:05 Dose Route Admin Location Dispensed Lot Number Expiration Date Pack age [facility] Chain Pegger 0.5 mL IM Left Deltoid 0.5 mL [id number] 09/01/25 15667-686-00 [id number] [employer] VIS Given Date VIS Provided VIS Publication Date 01/20/25 Single Vaccine 24 Eligibility Eligibility Date Funding Source Public Non-VFC diphth,pertus(acell),tetanus 2.5 Lf unit-8 mcg-5 Lf/0.5mL IM syringe Performing Provider: Linda Suarez CNM Performing Location: [facility] Administered by: Kamala Salazar MA on 01/20/25 12:06 Dose Route Admin Location Dispensed Lot Number Expiration Date Pack age NDC NDC Chain Pegger 0.5 mL IM Left Deltoid 0.5 mL [id number] 08/15/27 [id number] [employer] VIS Given Date VIS Provided VIS Publication Date 01/20/25 Single Vaccine 24 Eligibility Eligibility Date Funding Source Public Non-[facility] Assessment & Plan Diagnosis / Problem List (1) Encounter for supervision of high risk in third trimester, antepartum: Status: Acute (2) Cholestasis during : Status: Acute Plan Ursodiol 200 twice daily. Comfort measures for cholestasis. Did cholestasis labs today. Keep appointment with [facility] January 27. Discussed labor precautions. Increase fluids. Tdap and flu vaccine today. Return in 2 weeks OB to Additional Plan Follow Up: 2 Weeks (obc)
[2025-01-20 11:41] VITALS: BP 102/69; PULSE 90; RESP 18; TEMP 36.4; O2SAT 98; BMI 36.9
== END 2025-01-20 11:52 | disposition home or self-care (01) ==
LOC: HODSOBC 11:24
PROVIDERS: Supervising Provider Advanced Practice Midwife; Visit Provider Advanced Practice Midwife
DX: O09.893 Supervision of other high risk pregnancies, third trimester (principal); O26.643 Intrahepatic cholestasis of pregnancy, third trimester; Z3A.30 30 weeks gestation of pregnancy; Z23 Encounter for immunization
CPT/HCPCS: 90471; 90686; 90715; 96372; 99214; G0463; J9060

== ENCOUNTER 2025-02-03 10:21 | Outpatient (AMB) | payer MEDICAID, SELFPAY ==
[2025-02-03 10:55] VITALS: BP 107/70; PULSE 90; RESP 18; TEMP 36.3; O2SAT 97; BMI 36.9
--- NOTE | 2025-02-03 10:55 | OBCLNT_ITS ---
Vital Signs 02/03/25 10:55 Height 1.52 m Height Method Stated Weight 85.332 kg Weight Measurement Method Standing Scale BMI 36.9 BP 107/70 Blood Pressure Source Automatic Cuff Blood Pressure Location Left Upper Arm Position Sitting Respiration 18 Pulse 90 Pulse Source Monitor Temp 97.3 F Temp Source Oral Pulse Oximetry (%) 97 Oxygen Delivery Method Room Air Allergies/Home Meds Allergies & Medications Allergies No Known Allergies Allergy (Verified 02/03/25 10:55) Medication Reconciliation vitamin-ferrous fumarate 28 mg iron-folic acid 800 mcg tablet ( Vitamins with Minerals) 1 tab PO QDAY #60 tabs 08/07/24 [Rx Confirmed 02/03/25] aspirin 81 mg tablet,delayed release 81 mg PO DAILY 01/01/25 [History Confirmed 02/03/25] ursodiol 200 mg capsule 200 mg PO BID #30 caps 01/20/25 [Rx Confirmed 02/03/25] Immunizations Immunizations Flu Vaccine in the Last 12 Months: Yes Flu Vaccine Exclusion Criteria: Already Received Care OB Visit Log OB Flowsheet Initial Weight: Not Recorded Date -?-?-?-?-?-?-?-?-?-?-?-?- EGA Weight BP Alb Glu CTX Pres Fundal ht FHR Mov Dilation Station Effacement Hx Notes Visit Note 08/07/24 -?-?-?-?-?-?-?-?-?-?-?-?- 6w 4d 83.234 kg 100/64 absent unknown c/o nausea, denies sab complaints. happy with pregnanccy. hilda sono: no evidence of IUP, uterus 10wk size, stripe: 1.4. HC. lmp 06/22/24. edc 03/30/25 schedule OB sono at [facility] today, ob panel, discuss sab precaution and er precaution, rtc 4 week schedule OB sono at [facility] today, ob panel, discuss sab precaution and er precaution, rtc 4 week . preg verif and rx for PNV 09/10/24 -?-?-?-?-?-?-?-?-?-?-?-?- 11w 3d 83.971 kg 107/69 absent unknown 10 145 absent increased nausea. work for [employer] note for weight restriction, denies sab complaints NIPT and carrier screen today, sched [facility] sono. call for [facility] sono results, discuss sab precaution, fluid. rtc 4 w obc 10/08/24 -?-?-?-?-?-?-?-?-?-?-?-?- 15w 3d 83.915 kg 105/66 absent unknown 15 134 absent No OB complaints. Light movement. Patient had follow-up maternal- medicine on October 17. AFP today, discu ss sab precaution, f/u [facility] 10/17 AFP today, discuss sab preca ution, f/u [facility] 10/17. schedule with OB NV 11/05/24 -?-?-?-?-?-?-?-?-?-?-?-?- 19w 3d 84.595 kg 100/65 absent unknown 19 135 absent Reports positive movement. Denies contractions. Denies leaking or bleeding. Patient has a follow-up medicine appointment November 14 to measure cervical length. Discussed AFP and carrier screens. Keep appointment on November 14 for cervical length measurement I discussed patient needing to be aware of presence of contractions and how to monitor for those along with any signs of infection. Increase fluids and rest. And return in 4 weeks OB check 12/03/24 -?-?-?-?-?-?-?-?-?-?-?-?- 23w 3d 84.538 kg 107/71 absent unknown 23 135 active Reports good movement. Denies leaking or bleeding. Denies contractions. Patient started on low-dose baby aspirin by [facility] last visit. Continue to be observant for labor signs and symptoms. Denies advised on monitoring for early contractions. Increase fluids. Be vigilant about signs symptoms of vaginitis and UTI. labor precautions given. Third trimester labs. I discussed patient management with OB. Patient to be given betamethasone x 2 at 30 weeks. Third trimester labs ordered. Patient has a follow-up in 4 weeks with [facility]. 12/31/24 -?-?-?-?-?-?-?-?-?-?-?-?- 27w 3d 85.786 kg 104/66 absent unknown 27 135 active Patient was seen in labor and delivery December 30, 2024. She is 1/2 cm dilated. She went in because cramping and pelvic pressure. Reports movement. 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 No leaking or bleeding. Patient has a follow-up [facility] January 27 start iron bid, ptl precaution start iron bid, ptl precauti on. Patient will start disability today on December 31, 2024. Because of cramping and pressure in the second trimester. Discussed labor precautions parameters. Increase fluids. Keep maternal- medicine appointment January 27 and return in 3 weeks for OB check 01/20/25 -?-?-?-?-?-?--?-?-?-?-?-?- 30w 2d 85.729 kg 102/69 absent unknown 30 135 active Patient complains of general itching over her body. Previous history of cholestasis. She has a follow-up appoint with [facility] January 27. Denies leaking, bleeding or contractions. Reports good movement Flu and Tdap given today. Keep appointment with maternal- medicine and January 27 for follow-up ultrasound. Discussed labor precautions. I ordered cholestasis labs today. Ursodiol 200 p.o. twice daily. Comfort measures. Return in 2 weeks OB 02/03/25 -?-?-?-?-?-?-?-?-?-?-?-?- 32w 2d 85.332 kg 107/70 absent cephalic 32 135 active Complains of itching over her body. Previous history of cholestasis. Reports good movement. Denies contractions, pressure, leaking, bleeding at this time. And reports good movement. Patient sent to labor and delivery today for betamethasone x 2. NST and BPP were also done. An GLADIS was normal. Patient scheduled for induction of labor due to total bile acids of 30 and the diagnosis of cholestasis March 08, 2024. Biweekly NST BPP scheduled. Kick count twice a day. Increase fluids. Continue ursodiol 250 p.o. twice daily. And return in 2 weeks for OB check. HILDA Calculator Estimated Delivery Date Method Current WG Current Estimate 03/29/25 LMP (Certain) 32w 2d Other Estimates 03/31/25 Ultrasound #1 32w 0d 03/29/25 Ultrasound #2 32w 2d 03/29/25 Manual 32w 2d final hilda: 03/29. EFW: 24% on 12/16/sono Notes Visit Date: 02/03/25 Last Updated by: Linda Suarez CNM CMP: AST: 51(high), ALT: 61(high), total bile acid :30 sono: 31w2, efw: 62%, no previa, normal GLADIS . PTB x3, Visit Date: 12/31/24 Last Updated by: Linda Suarez CNM 12/15: 3rd trilab wnl, Visit Date: 12/03/24 Last Updated by: Linda Suarez CNM sono: 11/14: 20w5. CX: 3.89: Give Beta x2 at 30 wk. f/u sono in 4 wk, If CX shortens at 24 week: start vag progesterone Visit Date: 11/05/24 Last Updated by: Linda Suarez CNM AFP-. sono 11/04 CX: 4.6. IUP 19w2 Visit Date: 10/08/24 Last Updated by: Linda Suarez CNM NIPT-/carrier screen-. OB panel: O+,abs-, rpr;;nr, rub imm, hbsag-,hiv-,HC-, GC/CT-. UA- MFM sono 10/03/24: IUP 14w5, cx: 3.74 prev x3: 09/14: 35wk, 04/20: 34wk, 06/22: 32wk Visit Date: 09/10/24 Last Updated by: Linda Suarez CNM OB panel: O+,abs-, rpr;;nr, RUB NI, hbsag-,hiv-,hc-, gc/ct-, UA- Visit Date: 08/07/24 Last Updated by: Linda Suarez CNM 28 yo . lmp 06/22/24. EDC 03/30/25 Office Procedures OBC Clinic LOC & Office Proc's Nursing/Assessment Patient Status: Established Patient OB Clinic Nursing Assessment: Medication Reconciliation, Update PMH in EMR and Vital Signs OB Clinic Coordination of Care: Complex Care and Chronic Disease 1-5, Consent,records obtained, informed consent, Education Simp Pt/Fam, 1 Ins Authorization, Lab and Imaging orders, Results/Orders obtained and Staff clarify orders Special Needs: Heart tones Established Patient Charge Established Patient Point Assignment: 150 Established Patient Point Charge: EP Level 4 (120-155) Assessment & Plan Diagnosis / Problem List (1) Encounter for supervision of high risk in third trimester, antepartum: Status: Acute (2) Cholestasis during in third trimester: Status: Acute Plan Patient to labor and delivery today for betamethasone x 2 due to previous x 3. Scheduled for induction March 08, 2024 due to cholestasis. Continue ursodiol 250 p.o. twice a day. Discussed labor precautions. Kick count twice a day. Increase fluids. And we discussed the importance of monitoring for early contractions and return in 2 weeks OB check Additional Plan Follow Up: 2 Weeks (obc)
== END 2025-02-03 11:46 | disposition home or self-care (01) ==
LOC: HODSOBC 10:21
PROVIDERS: Supervising Provider Advanced Practice Midwife; Visit Provider Advanced Practice Midwife
DX: O09.893 Supervision of other high risk pregnancies, third trimester (principal); O26.643 Intrahepatic cholestasis of pregnancy, third trimester; O09.213 Supervision of pregnancy with history of pre-term labor, third trimester; Z3A.32 32 weeks gestation of pregnancy
CPT/HCPCS: 99214; G0463

== ENCOUNTER 2025-02-03 12:01 | Observation (INO) | payer MEDICAID, SELFPAY ==
[2025-02-03 12:01] VITALS: BP 103/63; PULSE 78; RESP 100; RESP 16; TEMP 36.6
[2025-02-03 12:12] VITALS: BP 103/63; PULSE 78
[2025-02-03] MEDS: BETAMET ACET/BETAMET NA PH (Celestone) 6 MG/ML VIAL 12 MG IM (12:26)
[2025-02-03 12:45] VITALS: BMI 36.6
== END 2025-02-03 12:45 | disposition home or self-care (01) ==
PROVIDERS: Admitting Provider Advanced Practice Midwife; Visit Provider Advanced Practice Midwife
DX: Z34.90 Encounter for supervision of normal pregnancy, unspecified, unspecified trimester (principal); Z3A.00 Weeks of gestation of pregnancy not specified
CPT/HCPCS: 59025; 59899; 96372; J0702

== ENCOUNTER 2025-02-04 12:40 | Outpatient (CLI) | payer MEDICAID, SELFPAY ==
[2025-02-04] VITALS (8 sets, daily range): BP systolic 96; BP diastolic 55; PULSE 71–82; RESP 18–98; TEMP 36.7; O2SAT 94–100; BMI 36.7
[2025-02-04] MEDS: BETAMET ACET/BETAMET NA PH (Celestone) 6 MG/ML VIAL 12 MG IM (13:18)
== END 2025-02-04 13:24 | disposition home or self-care (01) ==
LOC: S4S1 12:42 → S4SX 12:43
PROVIDERS: Referring Provider Obstetrics & Gynecology; Visit Provider Obstetrics & Gynecology
DX: Z34.83 Encounter for supervision of other normal pregnancy, third trimester (principal); Z36.9 Encounter for antenatal screening, unspecified; Z3A.32 32 weeks gestation of pregnancy
CPT/HCPCS: 59025; 96372; J0702

== ENCOUNTER 2025-02-08 05:48 | Observation (INO) | payer MEDICAID, SELFPAY ==
[2025-02-08] VITALS (8 sets, daily range): BP systolic 94–106; BP diastolic 53–61; PULSE 62–72; RESP 17–99; TEMP 36.6; BMI 36.7
[2025-02-08 06:52] LABS: Collection Type, Urine Clean Catch; RBC,Urine 0 /hpf (0-3)
[2025-02-08 07:12] LABS: Bilirubin,Urine Negative (Negative); Blood,Urine Negative (Negative); Clarity,Urine Clear (Clear/Hazy); Color,Urine Colorless (Lt Yel-Yel); Glucose, Urine Negative (Negative); Ketones,Urine Negative (Negative); Leukocyte Esterase,Urine Negative (Negative); Nitrite,Urine Negative (Negative); PH,Urine 7.5 (5.0-7.0); Protein,Urine Negative (Neg - Trace); Specific Gravity,Urine 1.008 (1.001-1.035); Squamous Epithelial Cell,Urine < 1 /hpf (0-5); Urobilinogen,Urine Negative mg/dL (0.0-1.0); WBC,Urine < 1 /hpf (0-5)
[2025-02-08 07:40] LABS: FFN Specimen Descripton Clr Colrless Aqueous; Fetal Fibronectin Negative (Negative)
== END 2025-02-08 08:01 | disposition home or self-care (01) ==
PROVIDERS: Admitting Provider Obstetrics & Gynecology; Visit Provider Obstetrics & Gynecology
DX: O26.893 Other specified pregnancy related conditions, third trimester (principal); Z3A.33 33 weeks gestation of pregnancy; R10.20 Pelvic and perineal pain unspecified side
CPT/HCPCS: 59025; 59899; 81001; 82731; A9270

== ENCOUNTER 2025-02-13 21:53 | Observation (INO) | payer MEDICAID, SELFPAY ==
[2025-02-13] VITALS (10 sets, daily range): BP systolic 99; BP diastolic 58; PULSE 76–92; RESP 18–98; TEMP 37; O2SAT 96–99; BMI 37.3
[2025-02-13 22:41] LABS: ROM Kit Exp Date# 4/11/28; ROM Kit Lot # 58106258; Swb Mxed in Solvent 1 min? Yes
[2025-02-13 22:52] LABS: Rupture of Fetal Membranes Negative (Negative)
== END 2025-02-13 23:21 | disposition home or self-care (01) ==
PROVIDERS: Admitting Provider Obstetrics & Gynecology; PCP Advanced Practice Midwife; Visit Provider Obstetrics & Gynecology
DX: O26.893 Other specified pregnancy related conditions, third trimester (principal); Z3A.33 33 weeks gestation of pregnancy; L29.9 Pruritus, unspecified; R10.30 Lower abdominal pain, unspecified
CPT/HCPCS: 59025; 59899; 84112

== ENCOUNTER 2025-02-18 13:43 | Outpatient (AMB) | payer MEDICAID, SELFPAY ==
[2025-02-18 13:51] VITALS: BP 103/69; PULSE 98; RESP 18; TEMP 36.8; O2SAT 95; BMI 37.3
--- NOTE | 2025-02-18 13:51 | OBCLNT_ITS ---
Vital Signs 02/18/25 13:51 Height 1.52 m Height Method Stated Weight 86.239 kg Weight Measurement Method Standing Scale BMI 37.3 BP 103/69 Blood Pressure Source Automatic Cuff Blood Pressure Location Right Upper Arm Position Sitting Respiration 18 Pulse 98 Pulse Source Monitor Temp 98.2 F Temp Source Temporal Artery Scan Pulse Oximetry (%) 95 Oxygen Delivery Method Room Air Allergies/Home Meds Allergies & Medications Allergies No Known Allergies Allergy (Verified 02/18/25 13:52) Medication Reconciliation vitamin-ferrous fumarate 28 mg iron-folic acid 800 mcg tablet ( Vitamins with Minerals) 1 tab PO QDAY #60 tabs 08/07/24 [Rx Confirmed 02/18/25] aspirin 81 mg tablet,delayed release 81 mg PO DAILY 01/01/25 [History Confirmed 02/18/25] ursodiol 200 mg capsule 200 mg PO BID #30 caps 01/20/25 [Rx Confirmed 02/18/25] Immunizations Immunizations Flu Vaccine in the Last 12 Months: No Flu Vaccine Exclusion Criteria: No Exclusion Criteria Care OB Visit Log OB Flowsheet Initial Weight: Not Recorded Date -?-?-?-?-?-?-?-?-?-?-?-?- EGA Weight BP Alb Glu CTX Pres Fundal ht FHR Mov Dilation Station Effacement Hx Notes Visit Note 08/07/24 -?-?-?-?-?-?-?-?-?-?-?-?- 6w 4d 83.234 kg 100/64 absent unknown c/o nausea, denies sab complaints. happy with pregnanccy. hilda sono: no evidence of IUP, uterus 10wk size, stripe: 1.4. HC. lmp 06/22/24. edc 03/30/25 schedule OB sono at [facility], [facility] [place] today, ob panel, discuss sab precaution and er precaution, rtc 4 week schedule OB sono at [facility], [facility] today, ob panel, discuss sab precaution and er precaution, rtc 4 week . preg verif and rx for PNV 09/10/24 -?-?-?-?-?-?-?-?-?-?-?-?- 11w 3d 83.971 kg 107/69 absent unknown 10 145 absent increased nausea. work for [employer] note for weight restriction, denies sab complaints NIPT and carrier screen today, sched [facility] sono. call for [facility] sono results, discuss sab precaution, fluid. rtc 4 w obc 10/08/24 -?-?-?-?-?-?-?-?-?-?-?-?- 15w 3d 83.915 kg 105/66 absent unknown 15 134 absent No OB complaints. Light movement. Patient had follow-up maternal- medicine on October 17. AFP today, discu ss sab precaution, f/u [facility] 10/17 AFP today, discuss sab preca ution, f/u [facility] 10/17. schedule with OB [place] 11/05/24 -?-?-?-?-?-?-?-?-?-?-?-?- 19w 3d 84.595 kg 100/65 absent unknown 19 135 absent Reports positive movement. Denies contractions. Denies leaking or bleeding. Patient has a follow-up medicine appointment November 14 to measure cervical length. Discussed AFP and carrier screens. Keep appointment on November 14 for cervical length measurement I discussed patient needing to be aware of presence of contractions and how to monitor for those along with any signs of infection. Increase fluids and rest. And return in 4 weeks OB check 12/03/24 -?-?-?-?-?-?-?-?-?-?-?-?- 23w 3d 84.538 kg 107/71 absent unknown 23 135 active Reports good movement. Denies leaking or bleeding. Denies contractions. Patient started on low-dose baby aspirin by [facility] last visit. Continue to be observant for labor signs and symptoms. Denies advised on monitoring for early contractions. Increase fluids. Be vigilant about signs symptoms of vaginitis and UTI. labor precautions given. Third trimester labs. I discussed patient management with OB. Patient to be given betamethasone x 2 at 30 weeks. Third trimester labs ordered. Patient has a follow-up in 4 weeks with [facility]. 12/31/24 -?-?-?-?-?-?-?-?-?-?-?-?- 27w 3d 85.786 kg 104/66 absent unknown 27 135 active Patient was seen in labor and delivery December 30, 2024. She is 1/2 cm dilated. She went in because cramping and pelvic pressure. Reports movement. 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 No leaking or bleeding. Patient has a follow-up [facility] January 27 start iron bid, ptl precaution start iron bid, ptl precauti on. Patient will start disability today on December 31, 2024. Because of cramping and pressure in the second trimester. Discussed labor precautions parameters. Increase fluids. Keep maternal- medicine appointment January 27 and return in 3 weeks for OB check 01/20/25 -?-?-?-?-?-?-?-?-?-?-?-?- 30w 2d 85.729 kg 102/69 absent unknown 30 135 active Patient complains of general itching over her body. Previous history of cholestasis. She has a follow-up appoint with [facility] January 27. Denies leaking, bleeding or contractions. Reports good movement Flu and Tdap given today. Keep appointment with maternal- medicine and January 27 for follow-up ultrasound. Discussed labor precautions. I ordered cholestasis labs today. Ursodiol 200 p.o. twice daily. Comfort measures. Return in 2 weeks OB 02/03/25 -?-?-?-?-?-?-?-?-?-?-?-?- 32w 2d 85.332 kg 107/70 absent cephalic 32 135 active Complains of itching over her body. Previous history of cholestasis. Reports good movement. Denies contractions, pressure, leaking, bleeding at this time. And reports good movement. Patient sent to labor and delivery today for betamethasone x 2. NST and BPP were also done. An GLADIS was normal. Patient scheduled for induction of labor due to total bile acids of 30 and the diagnosis of cholestasis March 08, 2024. Biweekly NST BPP scheduled. Kick count twice a day. Increase fluids. Continue ursodiol 250 p.o. twice daily. And return in 2 weeks for OB check. 02/18/25 -?-?-?-?-?-?-?-?-?-?-?-?- 34w 3d 86.239 kg 103/69 absent cephalic 34 135 active Fetus active. Reports good movement. Some pressure. No leaking or bleeding. Patient states ursodiol has improved her itching. And she is compliant weekly NST BPP Fetus active. Reports good movement. Some pressure. No leaking or bleeding. Patient states ursodiol has improved her itching. And she is compliant weekly NST BPP. Last visit patient got betamethasone x 2 Discussed labor precautions. Kick count twice a day. GBS next visit. Patient scheduled for induction March. Continue ursodiol and biweekly NST BPP and return in a week HILDA Calculator Estimated Delivery Date Method Current WG Current Estimate 03/29/25 LMP (Certain) 34w 3d Other Estimates 03/31/25 Ultrasound #1 34w 1d 03/29/25 Ultrasound #2 34w 3d 03/29/25 Manual 34w 3d final hilda: 03/29. EFW: 24% on 12/16/sono Notes Visit Date: 02/03/25 Last Updated by: Linda Suarez CNM CMP: AST: 51(high), ALT: 61(high), total bile acid :30 sono: 31w2, efw: 62%, no previa, normal GLADIS . PTB x3, Visit Date: 12/31/24 Last Updated by: Linda Suarez CNM 12/15: 3rd trilab wnl, Visit Date: 12/03/24 Last Updated by: Linda Suarez CNM sono: 11/14: 20w5. CX: 3.89: Give Beta x2 at 30 wk. f/u sono in 4 wk, If CX shortens at 24 week: start vag progesterone Visit Date: 11/05/24 Last Updated by: Linda Suarez CNM AFP-. sono 11/04 CX: 4.6. IUP 19w2 Visit Date: 10/08/24 Last Updated by: Linda Suarez CNM NIPT-/carrier screen-. OB panel: O+,abs-, rpr;;nr, rub imm, hbsag-,hiv-,HC-, GC/CT-. UA- MFM sono 10/03/24: IUP 14w5, cx: 3.74 prev x3: 09/14: 35wk, 04/20: 34wk, 06/22: 32wk Visit Date: 09/10/24 Last Updated by: Linda Suarez CNM OB panel: O+,abs-, rpr;;nr, RUB NI, hbsag-,hiv-,hc-, gc/ct-, UA- Visit Date: 08/07/24 Last Updated by: Linda Suarez CNM 28 yo . lmp 06/22/24. EDC 03/30/25 Office Procedures OBC Clinic LOC & Office Proc's Nursing/Assessment Patient Status: Established Patient OB Clinic Nursing Assessment: Medication Reconciliation, Update PMH in EMR and Vital Signs OB Clinic Coordination of Care: Complex Care and Chronic Disease 1-5, Education Complex Pt/Fam, Consent,records obtained, informed consent, Lab and Imaging orders, Results/Orders obtained and Staff clarify orders Special Needs: Heart tones Established Patient Charge Established Patient Point Assignment: 140 Established Patient Point Charge: EP Level 4 (120-155) Assessment & Plan Diagnosis / Problem List (1) Encounter for supervision of high risk in third trimester, antepartum: Status: Acute (2) Cholestasis during in third trimester: Status: Acute Plan Induction of labor March 08. Continue ursodiol twice a day. Continue biweekly NST BPP. Kick count twice a day. Discussed labor precautions. Danger signs symptoms and ER precautions reviewed return in a week OB check and GBS Additional Plan Follow Up: 1 Week (obc)
== END 2025-02-18 14:59 | disposition home or self-care (01) ==
LOC: HODSOBC 13:43
PROVIDERS: Supervising Provider Advanced Practice Midwife; Visit Provider Advanced Practice Midwife
DX: O09.893 Supervision of other high risk pregnancies, third trimester (principal); O26.643 Intrahepatic cholestasis of pregnancy, third trimester; Z3A.34 34 weeks gestation of pregnancy
CPT/HCPCS: 99214; G0463

== ENCOUNTER 2025-03-02 08:57 | Outpatient (AMB) | payer MEDICAID, SELFPAY ==
[2025-03-02 09:07] VITALS: BP 109/79; PULSE 97; RESP 18; TEMP 36.2; O2SAT 98; BMI 37.5
--- NOTE | 2025-03-02 09:07 | OBCLNT_ITS ---
Vital Signs 03/02/25 09:07 Height 1.52 m Height Method Stated Weight 86.693 kg Weight Measurement Method Standing Scale BMI 37.5 BP 109/79 Blood Pressure Source Automatic Cuff Blood Pressure Location Left Upper Arm Position Sitting Respiration 18 Pulse 97 Pulse Source Monitor Temp 97.2 F Temp Source Oral Pulse Oximetry (%) 98 Oxygen Delivery Method Room Air Allergies/Home Meds Allergies & Medications Allergies No Known Allergies Allergy (Verified 03/02/25 09:08) Medication Reconciliation vitamin-ferrous fumarate 28 mg iron-folic acid 800 mcg tablet ( Vitamins with Minerals) 1 tab PO QDAY #60 tabs 08/07/24 [Rx Confirmed 03/02/25] aspirin 81 mg tablet,delayed release 81 mg PO DAILY 01/01/25 [History Confirmed 03/02/25] ursodiol 200 mg capsule 200 mg PO BID #30 caps 01/20/25 [Rx Confirmed 03/02/25] Immunizations Immunizations Flu Vaccine in the Last 12 Months: No Flu Vaccine Exclusion Criteria: No Exclusion Criteria Care OB Visit Log OB Flowsheet Initial Weight: Not Recorded Date -?-?-?-?-?-?-?-?-?-?-?-?- EGA Weight BP Alb Glu CTX Pres Fundal ht FHR Mov Dilation Station Effacement Hx Notes Visit Note 08/07/24 -?-?-?-?-?-?-?-?-?-?-?-?- 6w 4d 83.234 kg 100/64 absent unknown c/o nausea, denies sab complaints. happy with pregnanccy. hilda sono: no evidence of IUP, uterus 10wk size, stripe: 1.4. HC. lmp 06/22/24. edc 03/30/25 schedule OB sono at [facility], [facility], ob panel, discuss sab precaution and er precaution, rtc 4 week schedule OB sono at [facility], HCG today, ob panel, discuss sab precaution and er precaution, rtc 4 week . preg verif and rx for PNV 09/10/24 -?-?-?-?-?-?-?-?-?-?-?-?- 11w 3d 83.971 kg 107/69 absent unknown 10 145 absent increased nausea. work for [employer] app note for weight restriction, denies sab complaints NIPT and carrier screen today, sched [facility] sono. call for [facility] sono results, discuss sab precaution, fluid. rtc 4 w obc 10/08/24 -?-?-?-?-?-?-?-?-?-?-?-?- 15w 3d 83.915 kg 105/66 absent unknown 15 134 absent No OB complaints. Light movement. Patient had follow-up maternal- medicine on October 17. AFP today, discu ss sab precaution, f/u [facility] 10/17 AFP today, discuss sab preca ution, f/u [facility] 10/17. schedule with OB [place] 11/05/24 -?-?-?-?-?-?-?-?-?-?-?-?- 19w 3d 84.595 kg 100/65 absent unknown 19 135 absent Reports positive movement. Denies contractions. Denies leaking or bleeding. Patient has a follow-up medicine appointment November 14 to measure cervical length. Discussed AFP and carrier screens. Keep appointment on November 14 for cervical length measurement I discussed patient needing to be aware of presence of contractions and how to monitor for those along with any signs of infection. Increase fluids and rest. And return in 4 weeks OB check 12/03/24 -?-?-?-?-?-?-?-?-?-?-?-?- 23w 3d 84.538 kg 107/71 absent unknown 23 135 active Reports good movement. Denies leaking or bleeding. Denies contractions. Patient started on low-dose baby aspirin by [facility] last visit. Continue to be observant for labor signs and symptoms. Denies advised on monitoring for early contractions. Increase fluids. Be vigilant about signs symptoms of vaginitis and UTI. labor precautions given. Third trimester labs. I discussed patient management with OB. Patient to be given betamethasone x 2 at 30 weeks. Third trimester labs ordered. Patient has a follow-up in 4 weeks with [facility]. 12/31/24 -?-?-?-?-?-?-?-?-?-?-?-?- 27w 3d 85.786 kg 104/66 absent unknown 27 135 active Patient was seen in labor and delivery December 30, 2024. She is 1/2 cm dilated. She went in because cramping and pelvic pressure. Reports movement. 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 Patient has a follow-up [facility] January 27 start iron bid, ptl precaution start iron bid, ptl precauti on. Patient will start disability today on December 31, 2024. Because of cramping and pressure in the second trimester. Discussed labor precautions parameters. Increase fluids. Keep maternal- medicine appointment January 27 and return in 3 weeks for OB check 01/20/25 -?-?--?-?-?-?-?-?-?-?-?-?- 30w 2d 85.729 kg 102/69 absent unknown 30 135 active Patient complains of general itching over her body. Previous history of cholestasis. She has a follow-up appoint with [facility] January 27. Denies leaking, bleeding or contractions. Reports good movement Flu and Tdap given today. Keep appointment with maternal- medicine and January 27 for follow-up ultrasound. Discussed labor precautions. I ordered cholestasis labs today. Ursodiol 200 p.o. twice daily. Comfort measures. Return in 2 weeks OB 02/03/25 -?-?-?-?-?-?-?-?-?-?-?-?- 32w 2d 85.332 kg 107/70 absent cephalic 32 135 active Complains of itching over her body. Previous history of cholestasis. Reports good movement. Denies contractions, pressure, leaking, bleeding at this time. And reports good movement. Patient sent to labor and delivery today for betamethasone x 2. NST and BPP were also done. An GLADIS was normal. Patient scheduled for induction of labor due to total bile acids of 30 and the diagnosis of cholestasis March 08, 2024. Biweekly NST BPP scheduled. Kick count twice a day. Increase fluids. Continue ursodiol 250 p.o. twice daily. And return in 2 weeks for OB check. 02/18/25 -?-?-?-?-?-?-?-?-?-?-?-?- 34w 3d 86.239 kg 103/69 absent cephalic 34 135 active Fetus active. Reports good movement. Some pressure. No leaking or bleeding. Patient states ursodiol has improved her itching. And she is compliant weekly NST BPP Fetus active. Reports good movement. Some pressure. No leaking or bleeding. Patient states ursodiol has improved her itching. And she is complia nt weekly NST BPP. Last visit patient got betamethasone x 2 Discussed labor precautions. Kick count twice a day. GBS next visit. Patient scheduled for induction March. Continue ursodiol and biweekly NST BPP and return in a week HILDA Calculator Estimated Delivery Date Method Current WG Current Estimate 03/29/25 LMP (Certain) 36w 1d Other Estimates 03/31/25 Ultrasound #1 35w 6d 03/29/25 Ultrasound #2 36w 1d 03/29/25 Manual 36w 1d final hilda: 03/29. EFW: 24% on 12/16/sono Notes Visit Date: 02/03/25 Last Updated by: Linda Suarez CNM CMP: AST: 51(high), ALT: 61(high), total bile acid :30 sono: 31w2, efw: 62%, no previa, normal GLADIS . PTB x3, Visit Date: 12/31/24 Last Updated by: Linda Suarez CNM 12/15: 3rd trilab wnl, Visit Date: 12/03/24 Last Updated by: Linda Suarez CNM sono: 11/14: 20w5. CX: 3.89: Give Beta x2 at 30 wk. f/u sono in 4 wk, If CX shortens at 24 week: start vag progesterone Visit Date: 11/05/24 Last Updated by: Linda Suarez CNM AFP-. sono 11/04 CX: 4.6. IUP 19w2 Visit Date: 10/08/24 Last Updated by: Linda Suarez CNM NIPT-/carrier screen-. OB panel: O+,abs-, rpr;;nr, rub imm, hbsag-,hiv-,HC-, GC/CT-. UA- MFM sono 10/03/24: IUP 14w5, cx: 3.74 prev x3: 09/14: 35wk, 04/20: 34wk, 06/22: 32wk Visit Date: 09/10/24 Last Updated by: Linda Suarez CNM OB panel: O+,abs-, rpr;;nr, RUB NI, hbsag-,hiv-,hc-, gc/ct-, UA- Visit Date: 08/07/24 Last Updated by: Linda Suarez CNM 28 yo . lmp 06/22/24. EDC 03/30/25 Office Procedures [facility] LOC & Office Proc's Nursing/Assessment Patient Status: Established Patient OB Clinic Nursing Assessment: Medication Reconciliation, Update PMH in EMR and Vital Signs OB Clinic Coordination of Care: Complex Care and Chronic Disease 1-5, Consent,records obtained, informed consent, Education Simp Pt/Fam, Lab and Imaging orders, Results/Orders obtained and Staff clarify orders Special Needs: Heart tones Miscellaneous Interventions: Pelvic Comp w/OB cult Established Patient Charge Established Patient Point Assignment: 150 Established Patient Point Charge: EP Level 4 (120-155) Assessment & Plan Diagnosis / Problem List (1) Encounter for supervision of high risk in third trimester, antepartum: Status: Acute Plan Continue ursodiol 200 twice daily. Kick count twice a day. Continue biweekly NST BPP. Patient is scheduled already for March 08 for induction of labor because of cholestasis. Discussed danger signs symptoms and ER precautions return in a week if undelivered for OB check, GBS
== END 2025-03-02 09:21 | disposition home or self-care (01) ==
LOC: HODSOBC 08:57
PROVIDERS: Supervising Provider Advanced Practice Midwife; Visit Provider Advanced Practice Midwife
DX: O09.893 Supervision of other high risk pregnancies, third trimester (principal); O26.643 Intrahepatic cholestasis of pregnancy, third trimester; Z3A.36 36 weeks gestation of pregnancy
CPT/HCPCS: 99214; G0463